=== PATIENT | female | born 1945 | race Two or more races ===

== ENCOUNTER 2020-01-14 09:21 | Inpatient (IN) | payer MEDICARE, MEDICAID ==
[~2020-01-14] VITALS: Ht 165.1 cm; Wt 64.1 kg
--- NOTE | 2020-01-14 09:25 | NUR ---
ED Nurse Note: Triage was done but no available room yet. Pt/EMS waiting outside ER waiting for room availability. ER MD and charge nurse aware.
[2020-01-14] MEDS ORDERED: ACETAMINOPHEN325 M1 ORAL (09:54)
[2020-01-14] MEDS ORDERED: MULTIVITAMINS1 EAC8 ORAL (09:54)
[2020-01-14] MEDS ORDERED: ASCORBIC ACID500 MG ORAL (09:54)
[2020-01-14] MEDS ORDERED: ELIQUIS5 MG PO (09:54)
[2020-01-14] MEDS ORDERED: CEFTRIAXONE1 G1 IV (09:54)
[2020-01-14] MEDS ORDERED: COMBIVENT RESPIM4 GM IH (09:54)
[2020-01-14] MEDS ORDERED: ZITHROMAX250 MG ORAL (09:54)
[2020-01-14] MEDS ORDERED: PROBIOTIC1 EAC2 PO (09:54)
[2020-01-14] MEDS ORDERED: PANTOPRAZOLE SO40 MG ORAL (09:55)
[2020-01-14] MEDS ORDERED: ZOFRAN4 M3 ORAL (09:55)
[2020-01-14] MEDS ORDERED: SYMBICORT 16010.2 G1 IH (09:55)
[2020-01-14] MEDS ORDERED: PRO-STAT LIQUID30 ML ORAL (09:55)
[2020-01-14] MEDS ORDERED: LACTULOSE20 GM/301 ORAL (09:55)
[2020-01-14 11:00] VITALS: BP 122/74
--- NOTE | 2020-01-14 11:00 | NUR ---
ED Nurse Note: Pt brought by ambualnce from [facility]. Pt brought for abnormal labs 721 BNP. Pt has no cough, fever, bodyaches, nausea. history of COPD. Pt 94% 5L NC. Pt HR 88. Pt set up on monitor and isolation room in [facility]. has seen patient.
--- NOTE | 2020-01-14 11:01 | NUR ---
ED Nurse Note: Pt arrived with f/c.
--- NOTE | 2020-01-14 11:36 | Diagnostic Imaging Report ---
EXAM: XR Chest, 1 View CLINICAL HISTORY: PREOP TECHNIQUE: Frontal view of the chest. COMPARISON: None FINDINGS: Hardware: None. Lungs/pleura: Bibasilar opacities may represent atelectasis versus pneumonia. Small bilateral pleural effusions and/or pleural thickening. Background of chronic interstitial lung changes and probable emphysema. Heart/mediastinum: Enlargement of the cardiac silhouette. Atherosclerotic calcifications of the aorta. Soft tissues: Unremarkable. Bones: No acute fracture. Generative changes of the acromioclavicular joints. Upper abdomen: Normal. IMPRESSION: 1. Bibasilar opacities may represent atelectasis versus pneumonia. Small bilateral pleural effusions and/or pleural thickening. 2. Background of chronic interstitial lung changes and probable emphysema.
[2020-01-14 11:37] LABS: BASOPHILS % (AUTO) 1.5 % (0.0-2.0); EOSINOPHILS % (AUTO) 7.1 % (0.0-3.0); HEMATOCRIT 29.2 % (37.0-47.0); HEMOGLOBIN 8.5 G/DL (12.0-16.0); LYMPHOCYTES % (AUTO) 12.8 % (20.0-45.0); MEAN CORPUSCULAR VOLUME 86 FL (80-99); MONOCYTES % (AUTO) 7.8 % (1.0-10.0); NEUTROPHILS % (AUTO) 70.7 % (45.0-75.0); PLATELET COUNT 479 K/UL (150-450); RED BLOOD COUNT 3.39 M/UL (4.20-5.40); RED CELL DISTRIBUTION WIDTH 20.1 % (11.6-14.8); WHITE BLOOD COUNT 7.6 K/UL (4.8-10.8)
--- NOTE | 2020-01-14 11:46 | NUR ---
ED Nurse Note: COVID sample sent.
[2020-01-14 11:57] LABS: ANION GAP 7 mmol/L (5-15); BLOOD UREA NITROGEN 8 mg/dL (7-18); CALCIUM 8.8 MG/DL (8.5-10.1); CARBON DIOXIDE 29 MMOL/L (21-32); CHLORIDE 110 MMOL/L (98-107); CREATININE 0.5 MG/DL (0.55-1.30); POTASSIUM 4.3 MMOL/L (3.5-5.1); SODIUM 146 MMOL/L (136-145)
[2020-01-14 12:10] LABS: ALANINE AMINOTRANSFERASE 19 U/L (12-78); ALBUMIN 2.5 G/DL (3.4-5.0); ALBUMIN/GLOBULIN RATIO 0.8 (1.0-2.7); ALKALINE PHOSPHATASE 136 U/L (46-116); ASPARTATE AMINO TRANSFERASE 22 U/L (15-37); BILIRUBIN,TOTAL 0.2 MG/DL (0.2-1.0)
[2020-01-14] MEDS ORDERED: Cefepime HCl 2 GM in NS 110 ML IV ONE (12:30)
[2020-01-14] MEDS ORDERED: Vancomycin 1 GM in NS 275 ML IV ONE (12:30)
--- NOTE | 2020-01-14 13:26 | Emergency Room Report ---
History of Present Illness General Chief Complaint: Abnormal Labs Source: Patient, Medical Record Present Illness HPI 74-year-old female history of hypertension, diabetes presents with generalized weakness times unknown start date, no known aggravating relieving factor severity is moderate, constant patient reports feeling very tired and weak patient presents from group home with known COVID Allergies: Coded Allergies: No Known Allergies (Unverified , 01/14/20) COVID-19 Screening Contact w/high risk pt: No Recent Travel to affected area: No Experienced COVID-19 symptoms?: No Patient History Past Medical History: see triage record Reviewed Nursing Documentation: PMH: Agreed; PSxH: Agreed Nursing Documentation-PMH Past Medical History: No History, Except For Hx Hypertension: Yes - hyperlipidemia Hx COPD: Yes - pneumonia Review of Systems All Other Systems: negative except mentioned in HPI Physical Exam Vital Signs Date Time Temp Pulse Resp B/P (MAP) Pulse Ox O2 Delivery O2 Flow Rate FiO2 01/14/20 09:22 98.6 89 18 124/60 (81) 99 Nasal Cannula 3.0 Sp02 EP Interpretation: reviewed, normal General Appearance: alert, Chronically Ill Head: normocephalic, atraumatic Eyes: bilateral eye PERRL, bilateral eye EOMI ENT: uvula midline, moist mucus membranes Neck: supple, thyroid normal, supple/symm/no masses Respiratory: no respiratory distress, no retraction, no accessory muscle use Cardiovascular #1: regular rate, rhythm, no edema, no gallop, no murmur Gastrointestinal: non tender, soft, no guarding, no rebound Musculoskeletal: normal inspection Neurologic: alert, oriented x3 Psychiatric: mood/affect normal Skin: no rash, warm/dry Medical Decision Making Diagnostic Impression: Primary Impression: Weakness Additional Impressions: Suspected COVID-19 virus infection Pneumonia Qualified Codes: J18.9 - Pneumonia, unspecified organism ER Course 74-year-old female from nursing facility presents with generalized weakness fatigue, differential diagnosis includes COVID, pneumonia, sepsis patient with bilateral opacities, patient started on Cefepime and vancomycin, Patient admitted to [facility] Laboratory Tests Test 01/14/20 11:07 White Blood Count 7.6 K/UL (4.8-10.8) Red Blood Count 3.39 M/UL (4.20-5.40) L Hemoglobin 8.5 G/DL (12.0-16.0) L Hematocrit 29.2 % (37.0-47.0) L Mean Corpuscular Volume 86 FL (80-99) Mean Corpuscular Hemoglobin 25.1 PG (27.0-31.0) L Mean Corpuscular Hemoglobin Concent 29.2 G/DL (32.0-36.0) L Red Cell Distribution Width 20.1 % (11.6-14.8) H Platelet Count 479 K/UL (150-450) H Mean Platelet Volume 5.1 FL (6.5-10.1) L Neutrophils (%) (Auto) 70.7 % (45.0-75.0) Lymphocytes (%) (Auto) 12.8 % (20.0-45.0) L Monocytes (%) (Auto) 7.8 % (1.0-10.0) Eosinophils (%) (Auto) 7.1 % (0.0-3.0) H Basophils (%) (Auto) 1.5 % (0.0-2.0) Prothrombin Time 10.8 SEC (9.30-11.50) Prothrombin Time INR 1.0 (0.9-1.1) Activated Partial Thromboplast Time 28 SEC (23-33) Sodium Level 146 MMOL/L (136-145) H Potassium Level 4.3 MMOL/L (3.5-5.1) Chloride Level 110 MMOL/L (98-107) H Carbon Dioxide Level 29 MMOL/L (21-32) Anion Gap 7 mmol/L (5-15) Blood Urea Nitrogen 8 mg/dL (7-18) Creatinine 0.5 MG/DL (0.55-1.30) L Estimated Glomerular Filtration Rate > 60 mL/min (>60) Glucose Level 118 MG/DL (74-106) H Calcium Level 8.8 MG/DL (8.5-10.1) Total Bilirubin 0.2 MG/DL (0.2-1.0) Aspartate Amino Transferase (AST) 22 U/L (15-37) Alanine Aminotransferase (ALT) 19 U/L (12-78) Alkaline Phosphatase 136 U/L (46-116) H Troponin I 0.002 ng/mL (0.000-0.056) Pro-B-Type Natriuretic Peptide 6343 pg/mL (0-125) H Total Protein 5.7 G/DL (6.4-8.2) L Albumin 2.5 G/DL (3.4-5.0) L Globulin 3.2 g/dL Albumin/Globulin Ratio 0.8 (1.0-2.7) L Lipase 123 U/L (73-393) EKG Diagnostic Results EKG Time: 11:03 EP Interpretation: NSR, rate 77, QTc 457, no acute ST elevations, normal axis Rhythm Strip Diag. Results Rhythm Strip Time: 11:05 EP Interpretation: yes Rate: 79 Rhythm: NSR, no PVC's, no ectopy Chest X-Ray Diagnostic Results Chest X-Ray Diagnostic Results : Chest X-Ray Ordered: Yes # of Views/Limited/Complete: 1 View Indication: Shortness of Breath Interpretation: other - Bilateral opacities Impression: Other - Bilateral infiltrates Last Vital Signs Date Time Temp Pulse Resp B/P (MAP) Pulse Ox O2 Delivery O2 Flow Rate FiO2 01/14/20 11:00 98.6 87 20 122/74 94 Nasal Cannula 4.0 Disposition: ADMITTED INPATIENT Condition: Stable Referrals: Oswald Fair MD (PCP) Georges Sánchez MD Jan 14, 2020 13:26
--- NOTE | 2020-01-14 13:30 | NUR ---
ED Nurse Note: ED wound care photos uploaded. Belongings list done.
[2020-01-14 13:55] VITALS: BP 120/71
[2020-01-14] MEDS ORDERED: Acetaminophen 650 MG SUPP RECTAL PRN ×2 (14:30)
[2020-01-14] MEDS ORDERED: DiphenhydrAMINE 25mg Tab ORAL PRN (14:30)
[2020-01-14] MEDS ORDERED: Miralax 17gm pkt ORAL PRN (14:30)
[2020-01-14] MEDS ORDERED: Nitroglycerin Subl 0.4mg tab SL PRN (14:30)
[2020-01-14] MEDS ORDERED: Morphine Sulfate 4mg/ml Inj (IV USE ONLY) IVP PRN (14:30)
--- NOTE | 2020-01-14 15:50 | NUR ---
ED Nurse Note: Pt in stable condition, VSS. Pt voiding. Output recorded.
--- NOTE | 2020-01-14 16:15 | Cardiac Electrophysiology PN ---
Subjective Subjective [id number] Objective Last 24 Hour Vital Signs Date Time Temp Pulse Resp B/P (MAP) Pulse Ox O2 Delivery O2 Flow Rate FiO2 01/14/20 11:00 98.6 87 20 122/74 94 Nasal Cannula 4.0 01/14/20 09:22 98.6 89 18 124/60 (81) 99 Nasal Cannula 3.0 Laboratory Tests Test 01/14/20 11:07 White Blood Count 7.6 K/UL (4.8-10.8) Red Blood Count 3.39 M/UL (4.20-5.40) L Hemoglobin 8.5 G/DL (12.0-16.0) L Hematocrit 29.2 % (37.0-47.0) L Mean Corpuscular Volume 86 FL (80-99) Mean Corpuscular Hemoglobin 25.1 PG (27.0-31.0) L Mean Corpuscular Hemoglobin Concent 29.2 G/DL (32.0-36.0) L Red Cell Distribution Width 20.1 % (11.6-14.8) H Platelet Count 479 K/UL (150-450) H Mean Platelet Volume 5.1 FL (6.5-10.1) L Neutrophils (%) (Auto) 70.7 % (45.0-75.0) Lymphocytes (%) (Auto) 12.8 % (20.0-45.0) L Monocytes (%) (Auto) 7.8 % (1.0-10.0) Eosinophils (%) (Auto) 7.1 % (0.0-3.0) H Basophils (%) (Auto) 1.5 % (0.0-2.0) Prothrombin Time 10.8 SEC (9.30-11.50) Prothromb Time International Ratio 1.0 (0.9-1.1) Activated Partial Thromboplast Time 28 SEC (23-33) Sodium Level 146 MMOL/L (136-145) H Potassium Level 4.3 MMOL/L (3.5-5.1) Chloride Level 110 MMOL/L (98-107) H Carbon Dioxide Level 29 MMOL/L (21-32) Anion Gap 7 mmol/L (5-15) Blood Urea Nitrogen 8 mg/dL (7-18) Creatinine 0.5 MG/DL (0.55-1.30) L Estimat Glomerular Filtration Rate > 60 mL/min (>60) Glucose Level 118 MG/DL (74-106) H Calcium Level 8.8 MG/DL (8.5-10.1) Total Bilirubin 0.2 MG/DL (0.2-1.0) Aspartate Amino Transf (AST/SGOT) 22 U/L (15-37) Alanine Aminotransferase (ALT/SGPT) 19 U/L (12-78) Alkaline Phosphatase 136 U/L (46-116) H Troponin I 0.002 ng/mL (0.000-0.056) Pro-B-Type Natriuretic Peptide 6343 pg/mL (0-125) H Total Protein 5.7 G/DL (6.4-8.2) L Albumin 2.5 G/DL (3.4-5.0) L Globulin 3.2 g/dL Albumin/Globulin Ratio 0.8 (1.0-2.7) L Lipase 123 U/L (73-393) Microbiology Date/Time Source Procedure Growth Status 01/14/20 11:25 Rectum Received Diony Reeves MD Jan 14, 2020 16:15
[2020-01-14 16:20] VITALS: BP 125/73
[2020-01-14 17:29] LABS: APPEARANCE,URINE CLEAR; BILIRUBIN, URINE NEGATIVE (NEGATIVE); COLOR,URINE PALE YELLOW; GLUCOSE, URINE (UA) NEGATIVE (NEGATIVE); KETONES,URINE NEGATIVE (NEGATIVE); LEUKOCYTE ESTERASE ,URINE 2+ (NEGATIVE); NITRITE,URINE NEGATIVE (NEGATIVE); PH,URINE 8 (4.5-8.0); PROTEIN,URINE NEGATIVE (NEGATIVE); UROBILINOGEN,URINE NORMAL MG/DL (0.0-1.0)
--- NOTE | 2020-01-14 17:30 | NUR ---
ED Nurse Note: Pt is lying in bed. from inpatient has seen patient.
[2020-01-14 19:18] VITALS: BP 126/72
[2020-01-14] MEDS ORDERED: Morphine Sulfate 4mg/ml Inj (IV USE ONLY) IVP ONE (20:15)
--- NOTE | 2020-01-14 20:45 | NUR ---
ED Nurse Note: Report received from CHRISTINA Zafar. Pt in stable condition, VSS no ss of distress noted. PT placed on monitor in RM 07. Pt is argentine speaking only, aao x 2. Will continue to monitor
[2020-01-14 21:30] VITALS: BP 131/49
--- NOTE | 2020-01-14 22:10 | NUR ---
ED Nurse Note: Pt sleeping in bed, vss no ss of distress noted. will continue to monitor.
[2020-01-14] MEDS: Docusate 100mg cap ORAL SCH (22:41)
[2020-01-14 23:41] VITALS: BP 130/48
[2020-01-15] VITALS (9 sets, daily range): BP systolic 111–125; BP diastolic 40–59
--- NOTE | 2020-01-15 00:15 | NUR ---
ED Nurse Note: Pt sleeping in bed, vss no ss of distress noted. will continue to monitor.
--- NOTE | 2020-01-15 02:35 | NUR ---
ED Nurse Note: Pt sleeping in bed, vss no ss of distress noted. will continue to monitor.
--- NOTE | 2020-01-15 03:00 | Consultation ---
DATE OF CONSULTATION: 01/14/2020 CARDIOLOGY CONSULTATION CONSULTING PHYSICIAN: Diony Reeves MD. REFERRING PHYSICIAN: Oswald Fair MD. REASON FOR CONSULTATION: Congestive heart failure and hypertension. HISTORY OF PRESENT ILLNESS: The patient is a 74-year-old lady with history of hypertension, diabetes, congestive heart failure, presented to emergency room with generalized weakness. The patient is coming from [facility] with known COVID disease patients. In the ER, the patient's blood pressure was 124/68, pulse of 89. The patient is being admitted to rule out COVID. It is of note that the patient's BNP was more than 6000. The first troponin was negative. REVIEW OF SYSTEMS: Negative. PAST MEDICAL HISTORY: As mentioned above. FAMILY HISTORY: Noncontributory. SOCIAL HISTORY: She is a halfway resident. Does not smoke or drink alcohol. PHYSICAL EXAMINATION: VITAL SIGNS: Blood pressure is 122/74, pulse is 87, respirations 18, and temperature 98.6. HEAD AND NECK: Showed no JVD. LUNGS: Clear. CARDIOVASCULAR: Shows regular S1 and S2 with no gallop. ABDOMEN: Soft. EXTREMITIES: No pitting edema. LABORATORY DATA: Her labs show a sodium 142, potassium 4.3, BUN of 18, creatinine 0.5, glucose of 118. Troponin is negative. BNP 6343. White count is 7.2, hemoglobin 8.5, hematocrit 29.2. ASSESSMENT AND PLAN: 1. Shortness of breath and elevated BNP of more than 6000. Could be due to congestive heart failure. We will start the patient on Lasix 40 mg IV b.i.d. We will get an echocardiogram for further evaluation. 2. Hypertension. Continue Lasix at this time. 3. Possible pneumonia. The patient has ceftriaxone, azithromycin and the COVID-19 test result is pending. 4. Anemia, hemoglobin 8.5. 5. Diabetes. Thank you very much for allowing me to participate in the care of this patient. Please do not hesitate to contact me for any questions regarding my evaluation. Diony Reeves M.D. DR: JODIE JOB#: [id number] CC:
--- NOTE | 2020-01-15 04:00 | NUR ---
ED Nurse Note: Pt moved to hospital bed in stable condition, vss no ss of distress noted. Blood drawn for routine 0400 labs, sent to lab. EKG scheduled for 0400 taken and given to ERMGin. Will continue to monitor
[2020-01-15 04:45] LABS: BASOPHILS % (AUTO) 1.3 % (0.0-2.0); EOSINOPHILS % (AUTO) 3.9 % (0.0-3.0); HEMATOCRIT 30.4 % (37.0-47.0); HEMOGLOBIN 9.2 G/DL (12.0-16.0); LYMPHOCYTES % (AUTO) 14.6 % (20.0-45.0); MEAN CORPUSCULAR VOLUME 85 FL (80-99); MONOCYTES % (AUTO) 6.4 % (1.0-10.0); NEUTROPHILS % (AUTO) 73.9 % (45.0-75.0); PLATELET COUNT 483 K/UL (150-450); RED BLOOD COUNT 3.58 M/UL (4.20-5.40); WHITE BLOOD COUNT 9.6 K/UL (4.8-10.8)
[2020-01-15 04:48] LABS: ANION GAP 5 mmol/L (5-15); BLOOD UREA NITROGEN 8 mg/dL (7-18); CALCIUM 8.8 MG/DL (8.5-10.1); CARBON DIOXIDE 36 MMOL/L (21-32); CHLORIDE 104 MMOL/L (98-107); CREATININE 0.7 MG/DL (0.55-1.30); POTASSIUM 3.5 MMOL/L (3.5-5.1); SODIUM 145 MMOL/L (136-145)
--- NOTE | 2020-01-15 07:05 | NUR ---
HAND-OFF: Report given to .CHRISTINA Merchant
--- NOTE | 2020-01-15 07:50 | NUR ---
ED Nurse Note: EKG taken.
[2020-01-15] MEDS: Azithromycin 500 MG in NS 275 ML IV SCH (09:03)
[2020-01-15] MEDS: Docusate 100mg cap ORAL SCH ×2 (09:04→21:07)
[2020-01-15] MEDS: Aspirin Baby 81mg ORAL SCH (09:04)
[2020-01-15] MEDS: cefTRIAXone 1 GM in NS 55 ML IVPB SCH (09:04)
[2020-01-15] MEDS: Enoxaparin 40mg Inj SUBQ SCH (09:06)
--- NOTE | 2020-01-15 10:00 | NUR ---
ED Nurse Note: Pt is lying in bed. Pt is eating. F/C drained. VSS.
--- NOTE | 2020-01-15 13:59 | NUR ---
ED Nurse Note: Pt has pain in ab 01/28. ERMD aware.
--- NOTE | 2020-01-15 14:51 | History and Physical ---
History of Present Illness General Date patient seen: Jan 15, 2020 Reason for Hospitalization: Abnormal Labs Present Illness HPI 74 yr F w/ Hx HTN, CHF, DM2 admitted via ED with SOB c/w CHF exacerbation w/ suspected underlying PNA undergoing COVID 19 rule out. Pt was sent to the ED from SNF with known COVID positive patients. Pt reports general fatigue and malaise prior to presentation w/ associated SOB. In the ED pt was found to be afebrile and HDS. Has been sating well on NC. Labs sig for BNP 7000. CXR showed some bilat lower lobe infiltrates vs compressive changes and hyperinflation c/w emphysema. Pt was started on vanco/cefepime in ED and received a dose of IV lasix. COVID 19 PCR sent and isolation precautions initiated. CAP coverage w/ azithro/ceftriaxone started. Pt evaluated by cards and continued on IV lasix, good response. Serial Tn have been neg x 3. Symptoms improved. Allergies: Coded Allergies: No Known Allergies (Unverified , 01/14/20) COVID-19 Screening Contact w/high risk pt: No Recent Travel to affected area: No Experienced COVID-19 symptoms?: Yes COVID-19 symptoms experienced: Shortness of Breath, Cough Medication History Scheduled Amino Acids/Protein Hydrolys (Pro-Stat Liquid), 30 ML ORAL THREE TIMES A DAY, ( Reported) Apixaban (Eliquis), 5 MG PO TWICE A DAY, (Reported) Ascorbic Acid* (Ascorbic Acid*), 500 MG ORAL DAILY, (Reported) Azithromycin* (Zithromax*), 500 MG ORAL DAILY, (Reported) Budesonide/Formoterol Fumarate (Symbicort 160-4.5 Mcg Inhaler), 2 PUFF IH TWICE A DAY, (Reported) Ceftriaxone Sodium (Ceftriaxone), 1 GM IV DAILY, (Reported) Ipratropium/Albuterol Sulfate (Combivent Respimat Inhal [place]), 4 GM IH Q6HR, ( Reported) Lactobacillus Acidophilus (Probiotic), 1 EACH PO TWICE A DAY, (Reported) Lactulose (Lactulose*), 30 ML ORAL DAILY, (Reported) Multivitamin With Minerals (Multivitamins With Minerals*), 1 TAB ORAL DAILY, ( Reported) Pantoprazole* (Pantoprazole*), 40 MG ORAL DAILY, (Reported) Scheduled PRN Acetaminophen* (Acetaminophen 325MG Tablet*), 650 MG ORAL Q4H PRN for For Pain, (Reported) Ondansetron* (Zofran*), 4 MG ORAL Q6H PRN for Nausea & Vomiting, (Reported) Patient History Healthcare decision maker Resuscitation status Advanced Directive on File Review of Systems Constitutional: Reports: malaise, weakness Eye: Denies: no symptoms, see HPI, eye pain, blurred vision, tearing, double vision, nose pain, nose congestion, acuity changes, discharge, other Respiratory: Reports: shortness of breath, SMITH Cardiovascular: Denies: no symptoms, see HPI, chest pain, edema, palpitations, syncope, PND, other Gastrointestinal: Denies: no symptoms, see HPI, abdominal pain, constipation, diarrhea, nausea, vomiting, melena, hematemesis, other Musculoskeletal: Denies: no symptoms, see HPI, back pain, gout, joint pain, joint swelling, muscle pain, muscle stiffness, other Skin: Denies: no symptoms, see HPI, rash, change in color, change in hair/nails , dryness, lesions, other Psychiatric: Denies: no symptoms, see HPI, prior hx, anxiety, depressed feelings, emotional problems, SI, HI, hallucinations, other Physical Exam General Appearance: WD/WN, no apparent distress HEENT: normocephalic, atraumatic, PERRL, EOMI Neck: supple Respiratory/Chest: lungs clear, normal breath sounds, no respiratory distress, no accessory muscle use Cardiovascular/Chest: normal peripheral pulses, normal rate, regular rhythm, no gallop/murmur, JVD Abdomen: normal bowel sounds, non tender, soft Extremities: normal inspection Last 24 Hour Vital Signs Date Time Temp Pulse Resp B/P (MAP) Pulse Ox O2 Delivery O2 Flow Rate FiO2 01/15/20 11:30 Nasal Cannula 1.0 01/15/20 11:12 98.6 62 17 117/53 95 Nasal Cannula 1.0 01/15/20 09:12 98.6 68 20 124/47 96 Nasal Cannula 1.0 01/15/20 05:45 98.6 60 21 123/42 94 Nasal Cannula 1.0 01/15/20 03:00 98.6 67 15 124/43 94 Nasal Cannula 2.0 01/15/20 01:22 98.6 64 16 118/43 94 Nasal Cannula 1.0 01/14/20 23:41 98.6 65 16 130/48 94 Nasal Cannula 1.0 01/14/20 21:30 98.6 68 16 131/49 94 Nasal Cannula 1.0 01/14/20 20:46 98.6 01/14/20 19:18 98.6 82 16 126/72 94 Nasal Cannula 1.0 01/14/20 16:20 98.6 86 18 125/73 94 Nasal Cannula 1.0 Intake and Output 01/14/20 01/15/20 19:00 07:00 Intake Total 0 ml Output Total 330 ml 4000 ml Balance -330 ml -4000 ml Intake Oral 0 ml Output Urine Total 330 ml 4000 ml Laboratory Tests Test 01/14/20 16:20 01/14/20 16:36 01/15/20 04:00 Urine Color Pale yellow Urine Appearance Clear Urine pH 8 (4.5-8.0) Urine Specific Hext 1.010 (1.005-1.035) Urine Protein Negative (NEGATIVE) Urine Glucose (UA) Negative (NEGATIVE) Urine Ketones Negative (NEGATIVE) Urine Blood Negative (NEGATIVE) Urine Nitrite Negative (NEGATIVE) Urine Bilirubin Negative (NEGATIVE) Urine Urobilinogen Normal MG/DL (0.0-1.0) Urine Leukocyte Esterase 2+ (NEGATIVE) H Urine RBC 0 /HPF (0 - 2) Urine WBC 2-4 /HPF (0 - 2) Urine Squamous Epithelial Cells None /LPF (NONE/OCC) Urine Bacteria Occasional /HPF (NONE) Activated Partial Thromboplast Time 27 SEC (23-33) Troponin I 0.001 ng/mL (0.000-0.056) 0.005 ng/mL (0.000-0.056) White Blood Count 9.6 K/UL (4.8-10.8) Red Blood Count 3.58 M/UL (4.20-5.40) L Hemoglobin 9.2 G/DL (12.0-16.0) L Hematocrit 30.4 % (37.0-47.0) L Mean Corpuscular Volume 85 FL (80-99) Mean Corpuscular Hemoglobin 25.7 PG (27.0-31.0) L Mean Corpuscular Hemoglobin Concent 30.3 G/DL (32.0-36.0) L Red Cell Distribution Width 20.0 % (11.6-14.8) H Platelet Count 483 K/UL (150-450) H Mean Platelet Volume 4.9 FL (6.5-10.1) L Neutrophils (%) (Auto) 73.9 % (45.0-75.0) Lymphocytes (%) (Auto) 14.6 % (20.0-45.0) L Monocytes (%) (Auto) 6.4 % (1.0-10.0) Eosinophils (%) (Auto) 3.9 % (0.0-3.0) H Basophils (%) (Auto) 1.3 % (0.0-2.0) Sodium Level 145 MMOL/L (136-145) Potassium Level 3.5 MMOL/L (3.5-5.1) Chloride Level 104 MMOL/L (98-107) Carbon Dioxide Level 36 MMOL/L (21-32) H Anion Gap 5 mmol/L (5-15) Blood Urea Nitrogen 8 mg/dL (7-18) Creatinine 0.7 MG/DL (0.55-1.30) Estimat Glomerular Filtration Rate > 60 mL/min (>60) Glucose Level 97 MG/DL (74-106) Calcium Level 8.8 MG/DL (8.5-10.1) Pro-B-Type Natriuretic Peptide 7238 pg/mL (0-125) H Height (Feet): 5 Height (Inches): 5.00 Weight (Pounds): 150 Medications Current Medications Medications (Trade) Dose Ordered Sig/Yolanda Route PRN Reason Start Time Stop Time Status Last Admin Dose Admin Acetaminophen (Tylenol) 650 mg ONCE ORAL 01/15/20 14:15 01/15/20 16:00 Acetaminophen (Tylenol) 650 mg Q4H PRN ORAL FEVER 01/14/20 14:30 02/13/20 14:29 Acetaminophen (Tylenol) 650 mg Q4H PRN ORAL Mild Pain (Pain Scale 1-3) 01/14/20 14:30 02/13/20 14:29 Acetaminophen (Tylenol) 650 mg Q4H PRN RECTAL FEVER 01/14/20 14:30 02/13/20 14:29 Acetaminophen (Tylenol) 650 mg Q4H PRN RECTAL Mild Pain (Pain Scale 1-3) 01/14/20 14:30 02/13/20 14:29 Aspirin (ASA) 162 mg DAILY ORAL 01/15/20 09:00 02/29/20 08:59 01/15/20 09:04 Azithromycin 500 mg/Sodium Chloride 275 ml @ 275 mls/hr DAILY IV 01/15/20 10:00 01/20/20 09:59 01/15/20 09:03 Ceftriaxone Sodium 1 gm/ Sodium Chloride 55 ml @ 110 mls/hr DAILY IVPB 01/15/20 09:00 01/22/20 08:59 01/15/20 09:04 Diphenhydramine HCl (Benadryl) 25 mg Q6H PRN ORAL Itching/Pruritis/insomnia 01/14/20 14:30 02/13/20 14:29 Docusate Sodium (Colace) 100 mg EVERY 12 HOURS ORAL 01/14/20 21:00 02/13/20 20:59 01/15/20 09:04 Enoxaparin Sodium (Lovenox) 40 mg DAILY SUBQ 01/15/20 09:00 04/14/20 08:59 01/15/20 09:06 Famotidine (Pepcid) 20 mg Q12H PRN ORAL gerd 01/14/20 14:30 04/13/20 14:29 Furosemide (Lasix) 40 mg BID IV 01/14/20 18:00 02/13/20 17:59 01/15/20 09:03 Morphine Sulfate (Morphine Sulfate) 2 mg Q4H PRN IVP Moderate Pain (Pain Scale 4-6) 01/14/20 14:30 01/21/20 14:29 Morphine Sulfate (Morphine Sulfate) 4 mg Q4H PRN IVP Severe Pain (Pain Scale 7-10) 01/14/20 14:30 01/21/20 14:29 Nitroglycerin (Ntg) 0.4 mg Q5M PRN SL Prn Chest Pain 01/14/20 14:30 02/13/20 14:29 Ondansetron HCl (Zofran) 4 mg Q6H PRN IVP Nausea & Vomiting 01/14/20 14:30 02/13/20 14:29 Polyethylene Glycol (Miralax) 17 gm DAILYPRN PRN ORAL Constipation 01/14/20 14:30 02/13/20 14:29 Assessment/Plan Assessment/Plan: 74 yr F w/ Hx HTN, CHF, DM2 admitted via ED with SOB c/w CHF exacerbation w/ suspected underlying PNA undergoing COVID 19 rule out. #Rule out COVID 19 #Suspected PNA #COPD/Emphysema #Acute hypoxic respiratory failure (suspect pts sats < 88% on RA should be taken off O2 w/ pulm infiltrates and CHF) - admit to in pt - Pulm consult - COVID 19 PCR -> Pending - COVID 19 isolation precautions per protocol - c/w Azithromycin & Ceftriaxone (01/13 - ) - follow Blood, sputum cx's - ID consult - Trend CHEM, CBC - Supplemental O2 as needed - Nebs prn for SOB/Wheeze #Acute decompensated CHF - cardiology consult - property clerk - serial tn/ekg -> neg x 3 - UA not c/w infection - TTE - Lasix 40 IV BID, goal neg 1L per day - 1.5 L fluid restriction, cardiac diet - strict i/o's and daily weights - Trend chem, goal K>4, Mag>2 - workup and abx as above I spent 67 min on this case and 35 min was dedicated to counseling and care coordination including discussion including communication w/ overnight coverage , consultants, RN at bedside and ER MD. Time of this note may not reflect the time of the clinical encounter. Herb Lyman MD Jan 15, 2020 14:51
[2020-01-15] MEDS ORDERED: Albuterol/Ipratropium 3ml neb HHN PRN (15:00)
--- NOTE | 2020-01-15 16:12 | NUR ---
ED Nurse Note: f/c emptied. Pt had small bowel movement.
--- NOTE | 2020-01-15 17:16 | NUR ---
ED Nurse Note: Report given to Jason VASQUEZ.
--- NOTE | 2020-01-15 17:30 | Consultation ---
DATE OF CONSULTATION: 01/15/2020 PULMONARY CONSULTATION HISTORY OF PRESENT ILLNESS: This is a 74-year-old female with a history of CHF. She came to the hospital with weakness. She reported that she is also having cough and congestion. She was seen and worked up in the ER, admitted to the hospital. The patient has a history of hypertension and diabetes mellitus. [facility] and at the facility they have been patients with positive COVID-19. PAST MEDICAL HISTORY: Discussed above notable for hypertension, diabetes mellitus, CHF. MEDICATIONS: Reviewed and reconciled in chart. Currently, the patient is also getting Tylenol, aspirin, azithromycin, Rocephin, diphenhydramine, Colace, Lovenox, Pepcid, Lasix, and p.r.n. morphine. REVIEW OF SYSTEMS: Denies any headaches, hematemesis, melena, hematochezia, night sweats, or weight loss. PHYSICAL EXAMINATION: GENERAL: Reveals elderly female. VITAL SIGNS: Blood pressure is 117/50, heart rate 64, respiratory rate 18, O2 saturation 95% with 1 liters of oxygen. HEENT: Unremarkable. CHEST: Few crackles. HEART: Normal heart sounds. ABDOMEN: Soft. EXTREMITIES: There is 1+ edema. LABORATORY DATA: Lab testing shows hemoglobin 9.2, otherwise normal CBC and BMP. Troponin negative x3. Coags are negative. Urinalysis is negative. IMAGING STUDIES: X-ray chest was obtained yesterday, which shows bibasilar opacities consistent with atelectasis versus pneumonia. IMPRESSION: 1. Decompensated congestive heart failure. 2. Hypertension. 3. Diabetes mellitus. 4. Rule out COVID-19. DISCUSSION: Admitted to the hospital. Await COVID-19 testing. We will follow as forest resources professor. Currently, the patient is saturating well on low-flow oxygen. Continue home medications. We will increase Lasix. Pawan Holland M.D. DR: James JOB#: [id number] CC:
--- NOTE | 2020-01-15 18:00 | NUR ---
ED Nurse Note: Pt transferred to tele floor with all belongings. Received by RN Min. Pt on monitor.
--- NOTE | 2020-01-15 18:20 | NUR ---
NURSE NOTES: Pt transferred from ED via gurney with ED RN and tech. Pt in bed awake and orientedx2 or 3 and solomon islander speaking. Bed in lowest position and locked. Side railsx3 up for safety. On O2 1LPM via N/C. Multiple pressure wound noted. All pictures taken. IV site in RAC 20G SL, RFA 22G SL patent and asymptomatic. Will continue to plan of care.
--- NOTE | 2020-01-15 19:25 | NUR ---
HAND-OFF: Report given to Kdaie VASQUEZ. Pt remains stable.
--- NOTE | 2020-01-15 19:36 | NUR ---
NURSE NOTES: Spoke to Dr. Stearns, patient will be changed from observation to admition, added Dr. Geiger to the case for wound consult, and asked to put patient on sliding scale because patient is diabetic, but doctor said that her blood glucose had been good so no sliding scale was ordered.
--- NOTE | 2020-01-15 20:11 | NUR ---
NURSE NOTES: Received patient report from CHRISTINA Knight. Patient is AOx 3. Shows no signs of distress or pain at the time. IV checked, patent and flushed. There are no signs of erythema, infiltration, or bleeding from both. Bed in the lowest position, call light within reach, side rails up x 2, and bed alarm on. Will continue plan of care.
--- NOTE | 2020-01-15 21:45 | Consultation ---
History of Present Illness General Date patient seen: Jan 15, 2020 Chief Complaint: Abnormal Labs Present Illness HPI 74 year old female with multiple medical comorbidities presented to [facility] for evaluation of SOB and CHF. Admitted for care and management. Suspect COVID 19 pending testing. on admission abnormal labs, nutrition, and venous stasis ulcers requiring care. surgery called to evaluate and assist with care. Allergies: Coded Allergies: No Known Allergies (Unverified , 01/14/20) Medication History Scheduled Amino Acids/Protein Hydrolys (Pro-Stat Liquid), 30 ML ORAL THREE TIMES A DAY, ( Reported) Apixaban (Eliquis), 5 MG PO TWICE A DAY, (Reported) Ascorbic Acid* (Ascorbic Acid*), 500 MG ORAL DAILY, (Reported) Azithromycin* (Zithromax*), 500 MG ORAL DAILY, (Reported) Budesonide/Formoterol Fumarate (Symbicort 160-4.5 Mcg Inhaler), 2 PUFF IH TWICE A DAY, (Reported) Ceftriaxone Sodium (Ceftriaxone), 1 GM IV DAILY, (Reported) Ipratropium/Albuterol Sulfate (Combivent Respimat Inhal [place]), 4 GM IH Q6HR, ( Reported) Lactobacillus Acidophilus (Probiotic), 1 EACH PO TWICE A DAY, (Reported) Lactulose (Lactulose*), 30 ML ORAL DAILY, (Reported) Multivitamin With Minerals (Multivitamins With Minerals*), 1 TAB ORAL DAILY, ( Reported) Pantoprazole* (Pantoprazole*), 40 MG ORAL DAILY, (Reported) Scheduled PRN Acetaminophen* (Acetaminophen 325MG Tablet*), 650 MG ORAL Q4H PRN for For Pain, (Reported) Ondansetron* (Zofran*), 4 MG ORAL Q6H PRN for Nausea & Vomiting, (Reported) Patient History Limited by: medical condition History Provided By: Medical Record, PMD Healthcare decision maker Resuscitation status Advanced Directive on File Past Medical/Surgical History Past Medical/Surgical History: (1) Weakness (2) Pneumonia (3) CHF (congestive heart failure) (4) Abdominal pain (5) Suspected COVID-19 virus infection Review of Systems Constitutional: Denies: no symptoms, see HPI, chills, sweats, fever, malaise, weakness, other Eye: Denies: no symptoms, see HPI, eye pain, blurred vision, tearing, double vision, nose pain, nose congestion, acuity changes, discharge, other ENT: Denies: no symptoms, see HPI, ear pain, ear discharge, nose pain, nose congestion, throat pain, throat swelling, mouth pain, hearing loss, nasal discharge, other Respiratory: Reports: cough, shortness of breath; Denies: no symptoms, see HPI , stridor, wheezing, SMITH, sputum, other Cardiovascular: Denies: no symptoms, see HPI, chest pain, edema, palpitations, syncope, PND, other Gastrointestinal: Reports: abdominal pain; Denies: no symptoms, see HPI, constipation, diarrhea, nausea, vomiting, melena, hematemesis, other Genitourinary: Denies: no symptoms, see HPI, discharge, dysuria, frequency, hematuria, pain, retention, incontinence, urgency, vag bleed/dc, other Musculoskeletal: Denies: no symptoms, see HPI, back pain, gout, joint pain, joint swelling, muscle pain, muscle stiffness, other Skin: Denies: no symptoms, see HPI, rash, change in color, change in hair/nails , dryness, lesions, other Psychiatric: Denies: no symptoms, see HPI, prior hx, anxiety, depressed feelings, emotional problems, SI, HI, hallucinations, other Neurological: Denies: no symptoms, see HPI, headache, numbness, paresthesia, seizure, tingling, tremors, focal weakness, syncope, dizziness, other Endocrine: Denies: no symptoms, see HPI, excessive sweating, flushing, intolerance to temperature, increased thirst, increased urine, unexplained weight loss, other ROS Narrative difficult to obtain given patients overall condition Physical Exam General Appearance: no apparent distress, alert Lines, tubes and drains: peripheral HEENT: mucous membranes moist, PERRL Neck: supple, normal inspection Respiratory/Chest: chest wall non-tender, no accessory muscle use, decreased breath sounds Cardiovascular/Chest: other Abdomen: soft, no organomegaly, no mass Extremities: inflammation, slow capillary refill Skin Exam: warm/dry Neurologic: alert Last 24 Hour Vital Signs Date Time Temp Pulse Resp B/P (MAP) Pulse Ox O2 Delivery O2 Flow Rate FiO2 01/15/20 18:30 97.7 71 18 111/40 (63) 95 01/15/20 18:00 98.6 78 18 117/59 99 Nasal Cannula 1.0 01/15/20 16:07 98.6 71 16 125/59 97 Nasal Cannula 1.0 01/15/20 15:13 98.6 01/15/20 13:20 98.6 70 15 121/57 97 Nasal Cannula 1.0 01/15/20 11:30 Nasal Cannula 1.0 01/15/20 11:12 98.6 62 17 117/53 95 Nasal Cannula 1.0 01/15/20 09:12 98.6 68 20 124/47 96 Nasal Cannula 1.0 01/15/20 05:45 98.6 60 21 123/42 94 Nasal Cannula 1.0 01/15/20 03:00 98.6 67 15 124/43 94 Nasal Cannula 2.0 01/15/20 01:22 98.6 64 16 118/43 94 Nasal Cannula 1.0 01/14/20 23:41 98.6 65 16 130/48 94 Nasal Cannula 1.0 Intake and Output 01/14/20 01/15/20 19:00 07:00 Intake Total 0 ml Output Total 330 ml 4000 ml Balance -330 ml -4000 ml Intake Oral 0 ml Output Urine Total 330 ml 4000 ml Laboratory Tests Test 01/15/20 04:00 01/15/20 14:00 White Blood Count 9.6 K/UL (4.8-10.8) Red Blood Count 3.58 M/UL (4.20-5.40) L Hemoglobin 9.2 G/DL (12.0-16.0) L Hematocrit 30.4 % (37.0-47.0) L Mean Corpuscular Volume 85 FL (80-99) Mean Corpuscular Hemoglobin 25.7 PG (27.0-31.0) L Mean Corpuscular Hemoglobin Concent 30.3 G/DL (32.0-36.0) L Red Cell Distribution Width 20.0 % (11.6-14.8) H Platelet Count 483 K/UL (150-450) H Mean Platelet Volume 4.9 FL (6.5-10.1) L Neutrophils (%) (Auto) 73.9 % (45.0-75.0) Lymphocytes (%) (Auto) 14.6 % (20.0-45.0) L Monocytes (%) (Auto) 6.4 % (1.0-10.0) Eosinophils (%) (Auto) 3.9 % (0.0-3.0) H Basophils (%) (Auto) 1.3 % (0.0-2.0) Sodium Level 145 MMOL/L (136-145) Potassium Level 3.5 MMOL/L (3.5-5.1) Chloride Level 104 MMOL/L (98-107) Carbon Dioxide Level 36 MMOL/L (21-32) H Anion Gap 5 mmol/L (5-15) Blood Urea Nitrogen 8 mg/dL (7-18) Creatinine 0.7 MG/DL (0.55-1.30) Estimat Glomerular Filtration Rate > 60 mL/min (>60) Glucose Level 97 MG/DL (74-106) Calcium Level 8.8 MG/DL (8.5-10.1) Troponin I 0.005 ng/mL (0.000-0.056) 0.002 ng/mL (0.000-0.056) Pro-B-Type Natriuretic Peptide 7238 pg/mL (0-125) H Height (Feet): 5 Height (Inches): 5.00 Weight (Pounds): 150 Medications Current Medications Medications (Trade) Dose Ordered Sig/Yolanda Route PRN Reason Start Time Stop Time Status Last Admin Dose Admin Acetaminophen (Tylenol) 650 mg Q4H PRN ORAL Mild Pain (Pain Scale 1-3) 01/14/20 14:30 02/13/20 14:29 01/15/20 21:10 Acetaminophen (Tylenol) 650 mg Q4H PRN ORAL FEVER 01/14/20 14:30 02/13/20 14:29 Acetaminophen (Tylenol) 650 mg Q4H PRN RECTAL FEVER 01/14/20 14:30 02/13/20 14:29 Acetaminophen (Tylenol) 650 mg Q4H PRN RECTAL Mild Pain (Pain Scale 1-3) 01/14/20 14:30 02/13/20 14:29 Albuterol/ Ipratropium (Albuterol/ Ipratropium) 3 ml Q6HRT PRN HHN SOB/Wheeze 01/15/20 15:00 01/20/20 14:59 Aspirin (ASA) 162 mg DAILY ORAL 01/15/20 09:00 02/29/20 08:59 01/15/20 09:04 Azithromycin 500 mg/Sodium Chloride 275 ml @ 275 mls/hr DAILY IV 01/15/20 10:00 01/20/20 09:59 01/15/20 09:03 Ceftriaxone Sodium 1 gm/ Sodium Chloride 55 ml @ 110 mls/hr DAILY IVPB 01/15/20 09:00 01/22/20 08:59 01/15/20 09:04 Diphenhydramine HCl (Benadryl) 25 mg Q6H PRN ORAL Itching/Pruritis/insomnia 01/14/20 14:30 02/13/20 14:29 Docusate Sodium (Colace) 100 mg EVERY 12 HOURS ORAL 01/14/20 21:00 02/13/20 20:59 01/15/20 21:07 Enoxaparin Sodium (Lovenox) 40 mg DAILY SUBQ 01/15/20 09:00 04/14/20 08:59 01/15/20 09:06 Famotidine (Pepcid) 20 mg Q12H PRN ORAL gerd 01/14/20 14:30 04/13/20 14:29 Furosemide (Lasix) 40 mg BID IV 01/14/20 18:00 02/13/20 17:59 01/15/20 18:36 Morphine Sulfate (Morphine Sulfate) 2 mg Q4H PRN IVP Moderate Pain (Pain Scale 4-6) 01/14/20 14:30 01/21/20 14:29 Morphine Sulfate (Morphine Sulfate) 4 mg Q4H PRN IVP Severe Pain (Pain Scale 7-10) 01/14/20 14:30 01/21/20 14:29 Nitroglycerin (Ntg) 0.4 mg Q5M PRN SL Prn Chest Pain 01/14/20 14:30 02/13/20 14:29 Ondansetron HCl (Zofran) 4 mg Q6H PRN IVP Nausea & Vomiting 01/14/20 14:30 02/13/20 14:29 Polyethylene Glycol (Miralax) 17 gm DAILYPRN PRN ORAL Constipation 01/14/20 14:30 02/13/20 14:29 Assessment/Plan Problem List: (1) Suspected COVID-19 virus infection ICD Codes: Z20.828 - Contact with and (suspected) exposure to other viral communicable diseases SNOMED: 145933087 (2) Weakness ICD Codes: R53.1 - Weakness SNOMED: 59120049 (3) Pneumonia Assessment & Plan: Lungs/pleura: Bibasilar opacities may represent atelectasis versus pneumonia. Small bilateral pleural effusions and/or pleural thickening. Background of chronic interstitial lung changes and probable emphysema. Heart/mediastinum: Enlargement of the cardiac silhouette. Atherosclerotic calcifications of the aorta. Soft tissues: Unremarkable. Bones: No acute fracture. Generative changes of the acromioclavicular joints. Upper abdomen: Normal. IMPRESSION: 1. Bibasilar opacities may represent atelectasis versus pneumonia. Small bilateral pleural effusions and/or pleural thickening. 2. Background of chronic interstitial lung changes and probable emphysema. ICD Codes: J18.9 - Pneumonia, unspecified organism SNOMED: 362438924 Qualifiers: Qualified Codes: J18.9 - Pneumonia, unspecified organism (4) CHF (congestive heart failure) ICD Codes: I50.9 - Heart failure, unspecified SNOMED: 32074803 (5) Abdominal pain Assessment & Plan: currently no abdominal pain states had prior but more like reflux rx given will monitor ICD Codes: R10.9 - Unspecified abdominal pain SNOMED: 35006074 (6) Lower extremity ulceration Assessment & Plan: right leg medial aspect venous stasis ulcer noted 4cm x 3cm with surrounding tissue raised edges. no active drainage, no signs of active infection venous incompetence noted patients has had for some time but without significant improvement unknown prior trauma tender on palpation with some granulation tissue. no necrotic tissue or eschar also with sacral wound wash wound daily with normal saline, apply therahoney and foam dressing keep legs elevated turn q2h off load pressure will follow with recs thank you ICD Codes: L97.909 - Non-pressure chronic ulcer of unspecified part of unspecified lower leg with unspecified severity SNOMED: 53281165, 533980377 Gianluca Cummins Jan 15, 2020 21:45
--- NOTE | 2020-01-15 22:37 | NUR ---
NURSE NOTES: Patient had a rhythm strip with 6 consecutive PVCs heart rate of 66. Patient is asymptomatic. Left a message for Dr. Reeves informing him.
[2020-01-16] VITALS (7 sets, daily range): BP systolic 105–128; BP diastolic 50–78
--- NOTE | 2020-01-16 03:23 | NUR ---
NURSE NOTES:Reported from Rosendo from [facility] that patient is VRE rectum positive, rn informed.
[2020-01-16 05:35] LABS: BASOPHILS % (AUTO) 1.8 % (0.0-2.0); EOSINOPHILS % (AUTO) 12.1 % (0.0-3.0); HEMATOCRIT 30.5 % (37.0-47.0); HEMOGLOBIN 9.3 G/DL (12.0-16.0); LYMPHOCYTES % (AUTO) 15.5 % (20.0-45.0); MEAN CORPUSCULAR VOLUME 85 FL (80-99); NEUTROPHILS % (AUTO) 62.6 % (45.0-75.0); PLATELET COUNT 483 K/UL (150-450); RED BLOOD COUNT 3.61 M/UL (4.20-5.40); RED CELL DISTRIBUTION WIDTH 19.6 % (11.6-14.8); WHITE BLOOD COUNT 8.3 K/UL (4.8-10.8)
[2020-01-16 05:53] LABS: ANION GAP 9 mmol/L (5-15); BLOOD UREA NITROGEN 8 mg/dL (7-18); CALCIUM 9.1 MG/DL (8.5-10.1); CARBON DIOXIDE 30 MMOL/L (21-32); CHLORIDE 106 MMOL/L (98-107); CREATININE 0.7 MG/DL (0.55-1.30); POTASSIUM 3.8 MMOL/L (3.5-5.1); SODIUM 145 MMOL/L (136-145)
--- NOTE | 2020-01-16 07:33 | NUR ---
HAND-OFF: Report given to CHRISTINA Villalobos. Patient shows no signs of distress at this time. Endorsed plan of care..
--- NOTE | 2020-01-16 07:45 | NUR ---
NURSE NOTES: pt in stable condition,sitting in bed. Pt is no complaining of pain. environmental monitoring specialist on, no signs of respiratory or cardiac distress at this time. bed locked and in lowest position. Call light within reach, side rails up x2, bed alarm on. Will continue to monitor pt.
--- NOTE | 2020-01-16 07:58 | General Progress Note ---
Assessment/Plan Assessment/Plan: 74 yr F w/ Hx HTN, CHF, DM2 admitted via ED with SOB c/w CHF exacerbation w/ suspected underlying PNA undergoing COVID 19 rule out. #Rule out COVID 19 #Suspected PNA #COPD/Emphysema #Acute hypoxic respiratory failure (suspect pts sats < 88% on RA should be taken off O2 w/ pulm infiltrates and CHF) - cont. in pt medical care - Pulm consult - COVID 19 PCR -> Negative - pt may need second COVID for d/c back to [place], d/w CM - cont. COVID 19 isolation precautions for now - Blood Cx NGTD - F/u sputum cx's - Supplemental O2 as needed - Nebs prn for SOB/Wheeze - c/w Azithromycin & Ceftriaxone (01/13 - ) - ID consult, recs appreciated #Acute decompensated CHF - security monitor - serial tn/ekg -> neg x 3 - UA not c/w infection - 1.5 L fluid restriction, cardiac diet - strict i/o's and daily weights - Trend chem, goal K>4, Mag>2 - workup and abx as above - TTE pending - BNP 6k>>7k>>6k - cont. Lasix 40 IV BID, goal neg 1L per day - cardiology consult, recs appreciated #Venous Stasis Ulcers -Wound care following, recs appreciated Dispo: pt is from [facility], for dispo planning I spent 36 min on this case and 18 min was dedicated to counseling and care coordination including discussion including communication w/RN, CM, Cardiology. Additional 32 mins spent on non-face to face time w/chart review, H&P, progress notes, labs and radiographic findings. Time of this note may not reflect the time of the clinical encounter. Subjective Allergies: Coded Allergies: No Known Allergies (Unverified , 01/14/20) Subjective F/u for acute CHF exacerbation. BNP 6k, now 7k. Pt w/negative 4L yesterday. Pt w/no SOB, CP or LE pain at this time. Objective Last 24 Hour Vital Signs Date Time Temp Pulse Resp B/P (MAP) Pulse Ox O2 Delivery O2 Flow Rate FiO2 01/16/20 04:00 98.0 60 18 105/50 (68) 98 01/16/20 04:00 64 01/16/20 00:00 64 01/16/20 00:00 98.2 64 20 123/57 (79) 99 01/15/20 21:40 97.7 01/15/20 21:00 Nasal Cannula 1.0 01/15/20 20:00 98.3 82 19 113/49 (70) 96 01/15/20 20:00 69 01/15/20 18:30 97.7 71 18 111/40 (63) 95 01/15/20 18:00 98.6 78 18 117/59 99 Nasal Cannula 1.0 01/15/20 16:07 98.6 71 16 125/59 97 Nasal Cannula 1.0 01/15/20 15:13 98.6 01/15/20 13:20 98.6 70 15 121/57 97 Nasal Cannula 1.0 01/15/20 11:30 Nasal Cannula 1.0 01/15/20 11:12 98.6 62 17 117/53 95 Nasal Cannula 1.0 01/15/20 09:12 98.6 68 20 124/47 96 Nasal Cannula 1.0 Intake and Output 01/15/20 01/16/20 19:00 07:00 Output Total 2550 ml 2000 ml Balance -2550 ml -2000 ml Output Urine Total 2550 ml 2000 ml Laboratory Tests 01/15/20 14:00: Troponin I 0.002 01/16/20 04:00: Sodium Level 145, Potassium Level 3.8, Chloride Level 106, Carbon Dioxide Level 30, Anion Gap 9, Blood Urea Nitrogen 8, Creatinine 0.7, Estimat Glomerular Filtration Rate > 60, Glucose Level 77, Calcium Level 9.1 01/16/20 04:15: White Blood Count 8.3, Red Blood Count 3.61L, Hemoglobin 9.3L, Hematocrit 30.5L , Mean Corpuscular Volume 85, Mean Corpuscular Hemoglobin 25.8L, Mean Corpuscular Hemoglobin Concent 30.5L, Red Cell Distribution Width 19.6H, Platelet Count 483H, Mean Platelet Volume 4.9L, Neutrophils (%) (Auto) 62.6, Lymphocytes (%) (Auto) 15.5L, Monocytes (%) (Auto) 8.0, Eosinophils (%) (Auto) 12.1H, Basophils (%) (Auto) 1.8 Height (Feet): 5 Height (Inches): 5.00 Weight (Pounds): 141 Objective General Appearance: WD/WN, no apparent distress HEENT: NCAT, EOMI Neck: supple Respiratory/Chest: lungs clear, normal breath sounds, no respiratory distress, no accessory muscle use Cardiovascular/Chest: normal peripheral pulses, normal rate, regular rhythm, no gallop/murmur, JVD Abdomen: normal bowel sounds, non tender, soft Extremities: normal inspection, no edema appreciated Hannah Killian M.D. Jan 16, 2020 07:58
[2020-01-16] MEDS: Enoxaparin 40mg Inj SUBQ SCH (09:50)
[2020-01-16] MEDS: Azithromycin 500 MG in NS 275 ML IV SCH (09:51)
[2020-01-16] MEDS: Aspirin Baby 81mg ORAL SCH (09:53)
[2020-01-16] MEDS: cefTRIAXone 1 GM in NS 55 ML IVPB SCH (09:53)
[2020-01-16] MEDS: Docusate 100mg cap ORAL SCH ×2 (09:54→21:40)
--- NOTE | 2020-01-16 11:05 | NUR ---
NURSE NOTES: pt, tested negative for covid, red Stearns is aware. she will decided later on if pt needs a second covid test.
--- NOTE | 2020-01-16 12:34 | NUR ---
RD ASSESSMENT & RECOMMENDATIONS SEE CARE ACTIVITY FOR COMPLETE ASSESSMENT DAILY ESTIMATED NEEDS: Needs based on Cardiac, wounds/ 60kg abw 25-30 kcals/kg 5292-7621 total kcals 1.25-1.5 g protein/kg 75-90 g total protein 1500ml fluid restriction per MD mL/kg . total fluid mLs NUTRITION DIAGNOSIS: * Increased prot intake needs R/T wound healing as evidenced by admitted w/ multiple wounds including open wounds @ Lt ankle and Lt buttock per photos, pending evaluation. * Altered nutrition related lab values R/T CHF as evidenced by elev BNP (7238->6366), on Lasix and 1.5 L fluid restriction. CURRENT DIET:CARDIAC PO DIET RECOMMENDATIONS: LOW NA/ texture as tolerated ADDITIONAL RECOMMENDATIONS: * Daily calibrated bedscale wt : CHF dx * Wound healing: add MVI x 1, Vit C 500mg QD, ZnSO4 220mg QD x 10 days NEHEMIAS BID as tolerated/ f/up w/ WC eval * Fluid restriction per MD * Monitor lytes closely w/ Lasix, replete as needed
--- NOTE | 2020-01-16 13:06 | Surgery Progress Note ---
Surgery Progress Note Subjective Additional Comments doing well comfortable dressings intact labs noted rx written Objective Last 24 Hour Vital Signs Date Time Temp Pulse Resp B/P (MAP) Pulse Ox O2 Delivery O2 Flow Rate FiO2 01/16/20 08:10 98.0 3 20 119/59 (79) 96 01/16/20 04:00 98.0 60 18 105/50 (68) 98 01/16/20 04:00 64 01/16/20 00:00 64 01/16/20 00:00 98.2 64 20 123/57 (79) 99 01/15/20 21:40 97.7 01/15/20 21:00 Nasal Cannula 1.0 01/15/20 20:00 98.3 82 19 113/49 (70) 96 01/15/20 20:00 69 01/15/20 18:30 97.7 71 18 111/40 (63) 95 01/15/20 18:00 98.6 78 18 117/59 99 Nasal Cannula 1.0 01/15/20 16:07 98.6 71 16 125/59 97 Nasal Cannula 1.0 01/15/20 15:13 98.6 01/15/20 13:20 98.6 70 15 121/57 97 Nasal Cannula 1.0 I&O Intake and Output 01/15/20 01/16/20 19:00 07:00 Output Total 2550 ml 2000 ml Balance -2550 ml -2000 ml Output Urine Total 2550 ml 2000 ml Dressing: saturated Wound: clean Cardiovascular: RSR Respiratory: clear Abdomen: soft, flat, non-tender, present bowel sounds Extremities: no tenderness, no cyanosis Laboratory Tests Test 01/15/20 14:00 01/16/20 04:00 01/16/20 04:15 Troponin I 0.002 ng/mL (0.000-0.056) 0.000 ng/mL (0.000-0.056) Sodium Level 145 MMOL/L (136-145) Potassium Level 3.8 MMOL/L (3.5-5.1) Chloride Level 106 MMOL/L (98-107) Carbon Dioxide Level 30 MMOL/L (21-32) Anion Gap 9 mmol/L (5-15) Blood Urea Nitrogen 8 mg/dL (7-18) Creatinine 0.7 MG/DL (0.55-1.30) Estimat Glomerular Filtration Rate > 60 mL/min (>60) Glucose Level 77 MG/DL (74-106) Calcium Level 9.1 MG/DL (8.5-10.1) Pro-B-Type Natriuretic Peptide 6366 pg/mL (0-125) H White Blood Count 8.3 K/UL (4.8-10.8) Red Blood Count 3.61 M/UL (4.20-5.40) L Hemoglobin 9.3 G/DL (12.0-16.0) L Hematocrit 30.5 % (37.0-47.0) L Mean Corpuscular Volume 85 FL (80-99) Mean Corpuscular Hemoglobin 25.8 PG (27.0-31.0) L Mean Corpuscular Hemoglobin Concent 30.5 G/DL (32.0-36.0) L Red Cell Distribution Width 19.6 % (11.6-14.8) H Platelet Count 483 K/UL (150-450) H Mean Platelet Volume 4.9 FL (6.5-10.1) L Neutrophils (%) (Auto) 62.6 % (45.0-75.0) Lymphocytes (%) (Auto) 15.5 % (20.0-45.0) L Monocytes (%) (Auto) 8.0 % (1.0-10.0) Eosinophils (%) (Auto) 12.1 % (0.0-3.0) H Basophils (%) (Auto) 1.8 % (0.0-2.0) Plan Problems: (1) Suspected COVID-19 virus infection (2) Weakness (3) Pneumonia Assessment & Plan: Lungs/pleura: Bibasilar opacities may represent atelectasis versus pneumonia. Small bilateral pleural effusions and/or pleural thickening. Background of chronic interstitial lung changes and probable emphysema. Heart/mediastinum: Enlargement of the cardiac silhouette. Atherosclerotic calcifications of the aorta. Soft tissues: Unremarkable. Bones: No acute fracture. Generative changes of the acromioclavicular joints. Upper abdomen: Normal. IMPRESSION: 1. Bibasilar opacities may represent atelectasis versus pneumonia. Small bilateral pleural effusions and/or pleural thickening. 2. Background of chronic interstitial lung changes and probable emphysema. (4) CHF (congestive heart failure) (5) Abdominal pain Assessment & Plan: currently no abdominal pain states had prior but more like reflux rx given will monitor DAILY ESTIMATED NEEDS: Needs based on Cardiac, wounds/ 60kg abw 25-30 kcals/kg 6363-4553 total kcals 1.25-1.5 g protein/kg 75-90 g total protein 1500ml fluid restriction per MD mL/kg . total fluid mLs NUTRITION DIAGNOSIS: * Increased prot intake needs R/T wound healing as evidenced by admitted w/ multiple wounds including open wounds @ Lt ankle and Lt buttock per photos, pending evaluation. * Altered nutrition related lab values R/T CHF as evidenced by elev BNP (7238->6366), on Lasix and 1.5 L fluid restriction. CURRENT DIET:CARDIAC PO DIET RECOMMENDATIONS: LOW NA/ texture as tolerated ADDITIONAL RECOMMENDATIONS: * Daily calibrated bedscale wt : CHF dx * Wound healing: add MVI x 1, Vit C 500mg QD, ZnSO4 220mg QD x 10 days NEHEMIAS BID as tolerated/ f/up w/ WC eval * Fluid restriction per MD * Monitor lytes closely w/ Lasix, replete as needed (6) Lower extremity ulceration Assessment & Plan: right leg medial aspect venous stasis ulcer noted 4cm x 3cm with surrounding tissue raised edges. no active drainage, no signs of active infection venous incompetence noted patients has had for some time but without significant improvement unknown prior trauma tender on palpation with some granulation tissue. no necrotic tissue or eschar also with sacral wound wash wound daily with normal saline, apply therahoney and foam dressing keep legs elevated turn q2h off load pressure will follow with recs thank you Gianluca Cummins Jan 16, 2020 13:06
--- NOTE | 2020-01-16 13:48 | NUR ---
NURSE NOTES:WOUND CARE NOTES:Pt presented on admission with multiple pressure injuries,Stasis ulcer R lateral Malleolus. Full thickness pressure injury R lower gluteus. Base of wound is 90% beefy red,10% scattered slough,edges adherent to base of wound. Small amt sanguineous exudate noted. In addition, there is a full thickness pressure injury. Base of wound is beefy red and moist . Small amt sanguineous exudate noted. Three additional Unstageable pressure injuries noted to upper R gluteus. Pressure injury upper/medial R gluteal cheek has 100% slough.Pressure injury Uppermost R buttocks has 100% slough. Just inferior is 3rd pressure Unstageable pressure injury that has 100% slough. Periwound skin is maroon in colour with denuded area at cleft of buttocks. Partially opened DTPI R ischium. Base of wound is maroon with scattered open areas within base of injury. No odor or exudate noted. An area of hyperpigmentation from previous wound noted to L buttocks with surrounding maroon discoloration. Partial thickness pressure injury posterior upper R thigh. Base of wound is moist and viable with surrounding non-blanching erythema. Full thickness pressure injury Lateral L malleolus. Onyx granulation at base of wound. Edges are adherent to base of wound. Hemosiderin periwound . Purple marker noted along borders of wound. Non-blanching erythema L Hallux. Non-blanching erythema noted to R st metatarsal. Both heels are boggy with non-blanching erythema. Historical scars noted to distal/lateral R tibia,Lateral R malleolus and dorsal R foot. Tx.Plan:Cleanse wounds R buttocks/R Ischium with TheraHoney. Apply Moisture Barrier Paste periwounds and to L buttocks. Cover with Optifoam drsgs. Change every 3 days and prn. Cleanse wound L lateral Malleolus. Apply Therahoney. Apply Cavilon Skin Barrier periwound. Cover with Optifoam drsg. Change every 3 days and prn. Apply Moisture Barrier Paste to posterior and medial aspects of both upper thighs with each Incontinence care. Apply Cavilon Skin Barrier to both heels.Cover each heel with Optifoam drsg. Change every 7 days and prn. Reposition at least every 2hours or as tolerated. Off-load heels with pillow. APM/LETICIA Mattress. Reposition at least every 2hours or as tolerated. Off-load heels with pillow.
--- NOTE | 2020-01-16 13:54 | Pulmonology Progress Note ---
Assessment/Plan Assessment/Plan IMPRESSION: 1. Decompensated congestive heart failure. 2. Hypertension. 3. Diabetes mellitus. 4. Rule out COVID-19. DISCUSSION: Initial COVID-19 testing negative. 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 Currently, the patient is saturating well on low-flow oxygen. Continue home medications. Continue Lasix. Pawan Holland M.D. Subjective Interval Events: COVID 19 pcr x 1 negative Constitutional: Reports: no symptoms HEENT: Repors: no symptoms Respiratory: Reports: shortness of breath Cardiovascular: Reports: no symptoms Gastrointestinal/Abdominal: Reports: no symptoms Genitourinary: Reports: no symptoms Allergies: Coded Allergies: No Known Allergies (Unverified , 01/14/20) Objective Last 24 Hour Vital Signs Date Time Temp Pulse Resp B/P (MAP) Pulse Ox O2 Delivery O2 Flow Rate FiO2 01/16/20 08:10 98.0 3 20 119/59 (79) 96 01/16/20 04:00 98.0 60 18 105/50 (68) 98 01/16/20 04:00 64 01/16/20 00:00 64 01/16/20 00:00 98.2 64 20 123/57 (79) 99 01/15/20 21:40 97.7 01/15/20 21:00 Nasal Cannula 1.0 01/15/20 20:00 98.3 82 19 113/49 (70) 96 01/15/20 20:00 69 01/15/20 18:30 97.7 71 18 111/40 (63) 95 01/15/20 18:00 98.6 78 18 117/59 99 Nasal Cannula 1.0 01/15/20 16:07 98.6 71 16 125/59 97 Nasal Cannula 1.0 01/15/20 15:13 98.6 Intake and Output 01/15/20 01/16/20 19:00 07:00 Output Total 2550 ml 2000 ml Balance -2550 ml -2000 ml Output Urine Total 2550 ml 2000 ml General Appearance: no acute distress HEENT: normocephalic, mucous membranes moist, PERRL Respiratory/Chest: chest wall non-tender Cardiovascular: normal peripheral pulses Abdomen: normal bowel sounds Extremities: no cyanosis Neurologic/Psychiatric: alert Microbiology Date/Time Source Procedure Growth Status 01/14/20 17:38 Blood Blood Culture - Preliminary NO GROWTH AFTER 24 HOURS Resulted 01/14/20 17:23 Blood Blood Culture - Preliminary NO GROWTH AFTER 24 HOURS Resulted 01/14/20 11:25 Nasal Nares MRSA Culture - Final NO METHICILLIN RESISTANT STAPH AUREUS... Complete 01/14/20 11:25 Nasopharynx Coronavirus COVID-19 PCR (PATRIC) - Final Complete 01/14/20 11:25 Rectum VRE Culture - Final Enterococcus Faecium - Vre Enterococcus Faecalis - Vre Complete Laboratory Tests 01/15/20 14:00: Troponin I 0.002 01/16/20 04:00: Troponin I 0.000, Sodium Level 145, Potassium Level 3.8, Chloride Level 106, Carbon Dioxide Level 30, Anion Gap 9, Blood Urea Nitrogen 8, Creatinine 0.7, Estimat Glomerular Filtration Rate > 60, Glucose Level 77, Calcium Level 9.1, Pro-B-Type Natriuretic Peptide 6366H 01/16/20 04:15: White Blood Count 8.3, Red Blood Count 3.61L, Hemoglobin 9.3L, Hematocrit 30.5L , Mean Corpuscular Volume 85, Mean Corpuscular Hemoglobin 25.8L, Mean Corpuscular Hemoglobin Concent 30.5L, Red Cell Distribution Width 19.6H, Platelet Count 483H, Mean Platelet Volume 4.9L, Neutrophils (%) (Auto) 62.6, Lymphocytes (%) (Auto) 15.5L, Monocytes (%) (Auto) 8.0, Eosinophils (%) (Auto) 12.1H, Basophils (%) (Auto) 1.8 Current Medications Medications (Trade) Dose Ordered Sig/Yolanda Route PRN Reason Start Time Stop Time Status Last Admin Dose Admin Acetaminophen (Tylenol) 650 mg Q4H PRN ORAL Mild Pain (Pain Scale 1-3) 01/14/20 14:30 02/13/20 14:29 01/15/20 21:10 Acetaminophen (Tylenol) 650 mg Q4H PRN ORAL FEVER 01/14/20 14:30 02/13/20 14:29 Acetaminophen (Tylenol) 650 mg Q4H PRN RECTAL FEVER 01/14/20 14:30 02/13/20 14:29 Acetaminophen (Tylenol) 650 mg Q4H PRN RECTAL Mild Pain (Pain Scale 1-3) 01/14/20 14:30 02/13/20 14:29 Albuterol/ Ipratropium (Albuterol/ Ipratropium) 3 ml Q6HRT PRN HHN SOB/Wheeze 01/15/20 15:00 01/20/20 14:59 Ascorbic Acid (Vitamin C) 500 mg DAILY ORAL 01/17/20 09:00 02/16/20 08:59 Aspirin (ASA) 162 mg DAILY ORAL 01/15/20 09:00 02/29/20 08:59 01/16/20 09:53 Azithromycin 500 mg/Sodium Chloride 275 ml @ 275 mls/hr DAILY IV 01/15/20 10:00 01/20/20 09:59 01/16/20 09:51 Ceftriaxone Sodium 1 gm/ Sodium Chloride 55 ml @ 110 mls/hr DAILY IVPB 01/15/20 09:00 01/22/20 08:59 01/16/20 09:53 Diphenhydramine HCl (Benadryl) 25 mg Q6H PRN ORAL Itching/Pruritis/insomnia 01/14/20 14:30 02/13/20 14:29 Docusate Sodium (Colace) 100 mg EVERY 12 HOURS ORAL 01/14/20 21:00 02/13/20 20:59 01/16/20 09:54 Enoxaparin Sodium (Lovenox) 40 mg DAILY SUBQ 01/15/20 09:00 04/14/20 08:59 01/16/20 09:50 Famotidine (Pepcid) 20 mg Q12H PRN ORAL gerd 01/14/20 14:30 04/13/20 14:29 Furosemide (Lasix) 40 mg BID IV 01/14/20 18:00 02/13/20 17:59 01/16/20 09:51 Morphine Sulfate (Morphine Sulfate) 2 mg Q4H PRN IVP Moderate Pain (Pain Scale 4-6) 01/14/20 14:30 01/21/20 14:29 Morphine Sulfate (Morphine Sulfate) 4 mg Q4H PRN IVP Severe Pain (Pain Scale 7-10) 01/14/20 14:30 01/21/20 14:29 Multivitamins (Multivitamins) 1 tab DAILY ORAL 01/17/20 09:00 02/16/20 08:59 Nitroglycerin (Ntg) 0.4 mg Q5M PRN SL Prn Chest Pain 01/14/20 14:30 02/13/20 14:29 Ondansetron HCl (Zofran) 4 mg Q6H PRN IVP Nausea & Vomiting 01/14/20 14:30 02/13/20 14:29 Polyethylene Glycol (Miralax) 17 gm DAILYPRN PRN ORAL Constipation 01/14/20 14:30 02/13/20 14:29 Zinc Sulfate (Zinc Sulfate) 220 mg DAILY ORAL 01/17/20 09:00 01/27/20 08:59 Pawan Holland MD Jan 16, 2020 13:54
--- NOTE | 2020-01-16 13:58 | NUR ---
DISCHARGE PLANNING SPOKE WITH MIGUEL ANGEL AT [facility]. THEY ONLY NEED 1 COVID NEGATIVE TO ACCEPT PATIENT BACK FAXED CLINICALS TO [facility] T: [phone] F: [phone] NO DISCHARGE ORDER AT THIS TIME
--- NOTE | 2020-01-16 14:51 | Cardiac Electrophysiology PN ---
Assessment/Plan Assessment/Plan 1. Shortness of breath and elevated BNP of more than 6000 due to CHF and EF 25%. Ruled out for PA. On Lasix 40 mg IV b.i.d. Add Coreg 3.125 bid and Lisinopril 10 daily 2. NSVT. Due to CMP 3. LBBB 4. Pneumonia. On ceftriaxone, azithromycin and the COVID-19 test is negative 5. Anemia, hemoglobin 8.5. 6. Diabetes. DW RN Subjective Subjective Had NSVT. Feeling better. Objective Last 24 Hour Vital Signs Date Time Temp Pulse Resp B/P (MAP) Pulse Ox O2 Delivery O2 Flow Rate FiO2 01/16/20 12:00 92 01/16/20 09:00 Nasal Cannula 1.0 01/16/20 08:10 98.0 3 20 119/59 (79) 96 01/16/20 08:00 79 01/16/20 04:00 98.0 60 18 105/50 (68) 98 01/16/20 04:00 64 01/16/20 00:00 64 01/16/20 00:00 98.2 64 20 123/57 (79) 99 01/15/20 21:40 97.7 01/15/20 21:00 Nasal Cannula 1.0 01/15/20 20:00 98.3 82 19 113/49 (70) 96 01/15/20 20:00 69 01/15/20 18:30 97.7 71 18 111/40 (63) 95 01/15/20 18:00 98.6 78 18 117/59 99 Nasal Cannula 1.0 01/15/20 16:07 98.6 71 16 125/59 97 Nasal Cannula 1.0 01/15/20 15:13 98.6 Intake and Output 01/15/20 01/16/20 19:00 07:00 Output Total 2550 ml 2000 ml Balance -2550 ml -2000 ml Output Urine Total 2550 ml 2000 ml Laboratory Tests Test 01/16/20 04:00 01/16/20 04:15 Sodium Level 145 MMOL/L (136-145) Potassium Level 3.8 MMOL/L (3.5-5.1) Chloride Level 106 MMOL/L (98-107) Carbon Dioxide Level 30 MMOL/L (21-32) Anion Gap 9 mmol/L (5-15) Blood Urea Nitrogen 8 mg/dL (7-18) Creatinine 0.7 MG/DL (0.55-1.30) Estimat Glomerular Filtration Rate > 60 mL/min (>60) Glucose Level 77 MG/DL (74-106) Calcium Level 9.1 MG/DL (8.5-10.1) Troponin I 0.000 ng/mL (0.000-0.056) Pro-B-Type Natriuretic Peptide 6366 pg/mL (0-125) H White Blood Count 8.3 K/UL (4.8-10.8) Red Blood Count 3.61 M/UL (4.20-5.40) L Hemoglobin 9.3 G/DL (12.0-16.0) L Hematocrit 30.5 % (37.0-47.0) L Mean Corpuscular Volume 85 FL (80-99) Mean Corpuscular Hemoglobin 25.8 PG (27.0-31.0) L Mean Corpuscular Hemoglobin Concent 30.5 G/DL (32.0-36.0) L Red Cell Distribution Width 19.6 % (11.6-14.8) H Platelet Count 483 K/UL (150-450) H Mean Platelet Volume 4.9 FL (6.5-10.1) L Neutrophils (%) (Auto) 62.6 % (45.0-75.0) Lymphocytes (%) (Auto) 15.5 % (20.0-45.0) L Monocytes (%) (Auto) 8.0 % (1.0-10.0) Eosinophils (%) (Auto) 12.1 % (0.0-3.0) H Basophils (%) (Auto) 1.8 % (0.0-2.0) Microbiology Date/Time Source Procedure Growth Status 01/14/20 17:38 Blood Blood Culture - Preliminary NO GROWTH AFTER 24 HOURS Resulted 01/14/20 17:23 Blood Blood Culture - Preliminary NO GROWTH AFTER 24 HOURS Resulted 01/14/20 11:25 Nasal Nares MRSA Culture - Final NO METHICILLIN RESISTANT STAPH AUREUS... Complete 01/14/20 11:25 Nasopharynx Coronavirus COVID-19 PCR (PATRIC) - Final Complete 01/14/20 11:25 Rectum VRE Culture - Final Enterococcus Faecium - Vre Enterococcus Faecalis - Vre Complete Objective HEAD AND NECK: No JVD. LUNGS: Clear. CARDIOVASCULAR: Regular S1 and S2 with no gallop. ABDOMEN: Soft. EXTREMITIES: No pitting edema. Diony Reeves MD Jan 16, 2020 14:51
--- NOTE | 2020-01-16 15:55 | NUR ---
CASE MANAGEMENT:REVIEW 74 YR OLD FEMALE BIBA FROM [facility] CC: ABNORMAL LABS. WEAKNESS SI: SUSPECTED COVID 19. PNA 98.6 89 18 124/60 94% ON 5L/NC H/H-8.5/29.2 BNP+6343 TROPONIN(-) IS: IV VANCOMYCIN IV CEFEPIME IV LASIX LOVENOX SQ 2DECHO CHEST XRAY PT EVAL : TO TELEMETRY DCP: FROM [facility]
--- NOTE | 2020-01-16 19:41 | NUR ---
HAND-OFF: Report given to Tiana/CHRISTINA,pt in stable condition, endorsed pt needs to be turned and lots of barrier cream for her bottoms it has diaper rash and a wound.
--- NOTE | 2020-01-16 19:47 | NUR ---
NURSE NOTES: Received patient in bed, awake ,alert, oriented x3, has a Sanchez catheter on secured and draining well, patient is a fall risk , call light is on, bed alarm is on, bed is locked, frequent rounds will be made to ensure patients safety.
[2020-01-16] MEDS: Morphine Sulfate 2mg/ml Inj(IV/IM USE ONLY) IVP PRN (23:14)
[2020-01-17] VITALS: BP 105/52
[2020-01-17 04:00] VITALS: BP 120/64
--- NOTE | 2020-01-17 07:30 | NUR ---
HAND-OFF: Report given to James VASQUEZ.
[2020-01-17 07:31] LABS: BASOPHILS % (AUTO) 1.6 % (0.0-2.0); EOSINOPHILS % (AUTO) 11.8 % (0.0-3.0); HEMATOCRIT 28.4 % (37.0-47.0); HEMOGLOBIN 8.8 G/DL (12.0-16.0); LYMPHOCYTES % (AUTO) 18.9 % (20.0-45.0); MEAN CORPUSCULAR VOLUME 83 FL (80-99); MONOCYTES % (AUTO) 12.1 % (1.0-10.0); NEUTROPHILS % (AUTO) 55.6 % (45.0-75.0); PLATELET COUNT 419 K/UL (150-450); RED BLOOD COUNT 3.42 M/UL (4.20-5.40); RED CELL DISTRIBUTION WIDTH 19.4 % (11.6-14.8); WHITE BLOOD COUNT 7.5 K/UL (4.8-10.8)
[2020-01-17 07:55] LABS: ANION GAP 5 mmol/L (5-15); BLOOD UREA NITROGEN 8 mg/dL (7-18); CALCIUM 8.1 MG/DL (8.5-10.1); CARBON DIOXIDE 38 MMOL/L (21-32); CHLORIDE 101 MMOL/L (98-107); CREATININE 0.7 MG/DL (0.55-1.30); SODIUM 144 MMOL/L (136-145)
[2020-01-17 08:30] VITALS: BP 120/69
[2020-01-17 08:34] LABS: POTASSIUM 2.5 MMOL/L (3.5-5.1)
--- NOTE | 2020-01-17 08:43 | General Progress Note ---
Assessment/Plan Assessment/Plan: 74 yr F w/ Hx HTN, CHF, DM2 admitted via ED with SOB c/w CHF exacerbation w/ suspected underlying PNA undergoing COVID 19 rule out. #Suspected PNA #COPD/Emphysema #Acute hypoxic respiratory failure (suspect pts sats < 88% on RA should be taken off O2 w/ pulm infiltrates and CHF) - cont. in pt medical care - Pulm consult - COVID 19 PCR -> Negative - No need to retest COVID on pt per /LA - d/c COVID 19 isolation precautions for now - Blood Cx NGTD - Sputum Cx normal erickson - Supplemental O2 as needed - Nebs prn for SOB/Wheeze - abx per ID - cont. Azithromycin & Ceftriaxone (01/13 - ) - ID following, recs appreciated #Enterococcus UTI - abx per ID - management as above #Acute decompensated CHF #Acute on Chronic systolic heart failure #NSVT #PVCs #elevated BNP - engine monitor - BNP likely 2/2 CHF - 1.5 L fluid restriction, cardiac diet - strict i/o's and daily weights - workup and abx as above - TTE pending - cont. Lasix 40 IV BID, goal neg 1L per day - cardiology consult, pt will need cardiac cath once infection cleared #Hypokalemia - replace - pt on lasix for acute HF - potassium 20 mEq q/daily while on lasix #Venous Stasis Ulcers -Wound care following, recs appreciated Dispo: pt is from [facility], for dispo planning I spent 36 min on this case and 18 min was dedicated to counseling and care coordination including discussion including communication w/RN, NERISSA. Spent an additional 32 mins discussing case w/instrument technician helper, Dr Reeves and ID Dr. Maurice reguarding medications. Time of this note may not reflect the time of the clinical encounter. Subjective Allergies: Coded Allergies: No Known Allergies (Unverified , 01/14/20) Subjective F/u for acute CHF exacerbation. Yesterday w/NSVT, 6 beats today w/frequent PVCs. States is feeling better today. Pt denies CP, SOB, abd pain at this time. Objective Last 24 Hour Vital Signs Date Time Temp Pulse Resp B/P (MAP) Pulse Ox O2 Delivery O2 Flow Rate FiO2 01/17/20 04:35 62 4/28/20 04:00 98.1 68 20 120/64 (82) 92 01/17/20 00:48 65 01/17/20 00:00 98.2 66 20 105/52 (69) 97 01/16/20 23:44 98.1 01/16/20 22:13 82 01/16/20 21:54 98.1 87 22 128/74 (92) 94 01/16/20 21:52 Nasal Cannula 1.0 01/16/20 21:40 78 118/74 01/16/20 20:00 98.1 84 18 127/74 (91) 95 01/16/20 16:00 86 01/16/20 16:00 96.8 60 19 124/78 (93) 98 01/16/20 12:00 92 01/16/20 12:00 96.7 70 20 120/61 (80) 96 01/16/20 09:00 Nasal Cannula 1.0 Intake and Output 01/16/20 01/17/20 19:00 07:00 Intake Total 280 ml Output Total 1200 ml 1000 ml Balance -920 ml -1000 ml Intake Oral 280 ml Output Urine Total 1200 ml 1000 ml # Voids 3 Laboratory Tests 01/17/20 05:59: White Blood Count 7.5, Red Blood Count 3.42L, Hemoglobin 8.8L, Hematocrit 28.4L , Mean Corpuscular Volume 83, Mean Corpuscular Hemoglobin 25.7L, Mean Corpuscular Hemoglobin Concent 30.9L, Red Cell Distribution Width 19.4H, Platelet Count 419, Mean Platelet Volume 5.3L, Neutrophils (%) (Auto) 55.6, Lymphocytes (%) (Auto) 18.9L, Monocytes (%) (Auto) 12.1H, Eosinophils (%) (Auto ) 11.8H, Basophils (%) (Auto) 1.6, Sodium Level 144, Potassium Level 2.5*L, Chloride Level 101, Carbon Dioxide Level 38H, Anion Gap 5, Blood Urea Nitrogen 8 , Creatinine 0.7, Estimat Glomerular Filtration Rate > 60, Glucose Level 101, Calcium Level 8.1L, Pro-B-Type Natriuretic Peptide 2767H Height (Feet): 5 Height (Inches): 5.00 Weight (Pounds): 141 Objective General Appearance: WD/WN, no apparent distress, sitting up in bed eating breakfast HEENT: NCAT, EOMI Neck: supple Respiratory/Chest: lungs clear, normal breath sounds, no respiratory distress, no accessory muscle use Cardiovascular/Chest: RRR, no gallop/murmur, JVD Abdomen: normal bowel sounds, non tender, soft Extremities: normal inspection, no edema appreciated Hannah Killian M.D. Jan 17, 2020 08:43
--- NOTE | 2020-01-17 08:48 | NUR ---
NURSE NOTES: DC dropplet isolatin pt is negative and no second test is needed per doctor Killian.
[2020-01-17] MEDS ORDERED: Zinc Sulfate 220mg cap ORAL SCH (09:00)
[2020-01-17] MEDS: cefTRIAXone 1 GM in NS 55 ML IVPB SCH (10:27)
[2020-01-17] MEDS: Azithromycin 500 MG in NS 275 ML IV SCH (10:28)
[2020-01-17] MEDS: Enoxaparin 40mg Inj SUBQ SCH (10:29)
[2020-01-17] MEDS: Ascorbic Acid 500mg tab ORAL SCH (10:33)
[2020-01-17] MEDS: Docusate 100mg cap ORAL SCH ×2 (10:33→20:23)
[2020-01-17] MEDS: Spironolactone 25mg tab ORAL SCH (10:33)
[2020-01-17] MEDS: Lisinopril 10mg tab ORAL SCH (10:34)
[2020-01-17] MEDS: Aspirin Baby 81mg ORAL SCH (10:34)
--- NOTE | 2020-01-17 10:51 | Pulmonology Progress Note ---
Assessment/Plan Assessment/Plan IMPRESSION: 1. Decompensated congestive heart failure. 2. Hypertension. 3. Diabetes mellitus. 4. Rule out COVID-19. DISCUSSION: Initial COVID-19 testing negative. 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 Currently, the patient is saturating well on low-flow oxygen. Continue home medications. Continue Lasix. Pawan Holland M.D. Subjective Interval Events: COVID 19 pcr x 1 negative Constitutional: Reports: no symptoms HEENT: Repors: no symptoms Respiratory: Reports: shortness of breath Cardiovascular: Reports: no symptoms Gastrointestinal/Abdominal: Reports: no symptoms Genitourinary: Reports: no symptoms Allergies: Coded Allergies: No Known Allergies (Unverified , 01/14/20) Objective Last 24 Hour Vital Signs Date Time Temp Pulse Resp B/P (MAP) Pulse Ox O2 Delivery O2 Flow Rate FiO2 01/17/20 10:34 120/69 01/17/20 10:32 75 120/69 01/17/20 08:56 Nasal Cannula 1.0 01/17/20 08:30 97.6 75 20 120/69 (86) 98 01/17/20 04:35 62 01/17/20 04:00 98.1 68 20 120/64 (82) 92 01/17/20 00:48 65 01/17/20 00:00 98.2 66 20 105/52 (69) 97 01/16/20 23:44 98.1 01/16/20 22:13 82 01/16/20 21:54 98.1 87 22 128/74 (92) 94 01/16/20 21:52 Nasal Cannula 1.0 01/16/20 21:40 78 118/74 01/16/20 20:00 98.1 84 18 127/74 (91) 95 01/16/20 16:00 86 01/16/20 16:00 96.8 60 19 124/78 (93) 98 01/16/20 12:00 92 01/16/20 12:00 96.7 70 20 120/61 (80) 96 Intake and Output 01/16/20 01/17/20 19:00 07:00 Intake Total 280 ml Output Total 1200 ml 1000 ml Balance -920 ml -1000 ml Intake Oral 280 ml Output Urine Total 1200 ml 1000 ml # Voids 3 General Appearance: no acute distress HEENT: normocephalic, mucous membranes moist, PERRL Respiratory/Chest: chest wall non-tender Cardiovascular: normal peripheral pulses Abdomen: normal bowel sounds Extremities: no cyanosis Neurologic/Psychiatric: alert Microbiology Date/Time Source Procedure Growth Status 01/14/20 17:38 Blood Blood Culture - Preliminary NO GROWTH AFTER 48 HOURS Resulted 01/14/20 17:23 Blood Blood Culture - Preliminary NO GROWTH AFTER 48 HOURS Resulted 01/14/20 11:25 Nasal Nares MRSA Culture - Final NO METHICILLIN RESISTANT STAPH AUREUS... Complete 01/14/20 11:25 Nasopharynx Coronavirus COVID-19 PCR (PATRIC) - Final Complete 01/14/20 16:20 Urine,Clean Catch Urine Culture - Final Enterococcus Faecalis Complete 01/14/20 11:25 Rectum VRE Culture - Final Enterococcus Faecium - Vre Enterococcus Faecalis - Vre Complete Laboratory Tests 01/17/20 05:59: White Blood Count 7.5, Red Blood Count 3.42L, Hemoglobin 8.8L, Hematocrit 28.4L , Mean Corpuscular Volume 83, Mean Corpuscular Hemoglobin 25.7L, Mean Corpuscular Hemoglobin Concent 30.9L, Red Cell Distribution Width 19.4H, Platelet Count 419, Mean Platelet Volume 5.3L, Neutrophils (%) (Auto) 55.6, Lymphocytes (%) (Auto) 18.9L, Monocytes (%) (Auto) 12.1H, Eosinophils (%) (Auto ) 11.8H, Basophils (%) (Auto) 1.6, Sodium Level 144, Potassium Level 2.5*L, Chloride Level 101, Carbon Dioxide Level 38H, Anion Gap 5, Blood Urea Nitrogen 8 , Creatinine 0.7, Estimat Glomerular Filtration Rate > 60, Glucose Level 101, Calcium Level 8.1L, Magnesium Level 1.9, Pro-B-Type Natriuretic Peptide 2767H Current Medications Medications (Trade) Dose Ordered Sig/Yolanda Route PRN Reason Start Time Stop Time Status Last Admin Dose Admin Acetaminophen (Tylenol) 650 mg Q4H PRN ORAL Mild Pain (Pain Scale 1-3) 01/14/20 14:30 02/13/20 14:29 01/15/20 21:10 Acetaminophen (Tylenol) 650 mg Q4H PRN ORAL FEVER 01/14/20 14:30 02/13/20 14:29 Acetaminophen (Tylenol) 650 mg Q4H PRN RECTAL FEVER 01/14/20 14:30 02/13/20 14:29 Acetaminophen (Tylenol) 650 mg Q4H PRN RECTAL Mild Pain (Pain Scale 1-3) 01/14/20 14:30 02/13/20 14:29 Albuterol/ Ipratropium (Albuterol/ Ipratropium) 3 ml Q6HRT PRN HHN SOB/Wheeze 01/15/20 15:00 01/20/20 14:59 Ascorbic Acid (Vitamin C) 500 mg DAILY ORAL 01/17/20 09:00 02/16/20 08:59 01/17/20 10:33 Aspirin (ASA) 162 mg DAILY ORAL 01/15/20 09:00 02/29/20 08:59 01/17/20 10:34 Azithromycin 500 mg/Sodium Chloride 275 ml @ 275 mls/hr DAILY IV 01/15/20 10:00 01/20/20 09:59 01/17/20 10:28 Carvedilol (Coreg) 3.125 mg EVERY 12 HOURS ORAL 01/16/20 21:00 02/15/20 20:59 01/17/20 10:32 Ceftriaxone Sodium 1 gm/ Sodium Chloride 55 ml @ 110 mls/hr DAILY IVPB 01/15/20 09:00 01/22/20 08:59 01/17/20 10:27 Diphenhydramine HCl (Benadryl) 25 mg Q6H PRN ORAL Itching/Pruritis/insomnia 01/14/20 14:30 02/13/20 14:29 Docusate Sodium (Colace) 100 mg EVERY 12 HOURS ORAL 01/14/20 21:00 02/13/20 20:59 01/17/20 10:33 Enoxaparin Sodium (Lovenox) 40 mg DAILY SUBQ 01/15/20 09:00 04/14/20 08:59 01/17/20 10:29 Famotidine (Pepcid) 20 mg Q12H PRN ORAL gerd 01/14/20 14:30 04/13/20 14:29 Furosemide (Lasix) 40 mg BID IV 01/14/20 18:00 02/13/20 17:59 01/17/20 10:29 Lisinopril (ZestriL) 10 mg DAILY ORAL 01/17/20 09:00 02/16/20 08:59 01/17/20 10:34 Morphine Sulfate (Morphine Sulfate) 2 mg Q4H PRN IVP Moderate Pain (Pain Scale 4-6) 01/14/20 14:30 01/21/20 14:29 01/16/20 23:14 Morphine Sulfate (Morphine Sulfate) 4 mg Q4H PRN IVP Severe Pain (Pain Scale 7-10) 01/14/20 14:30 01/21/20 14:29 Multivitamins (Multivitamins) 1 tab DAILY ORAL 01/17/20 09:00 02/16/20 08:59 01/17/20 10:34 Nitroglycerin (Ntg) 0.4 mg Q5M PRN SL Prn Chest Pain 01/14/20 14:30 02/13/20 14:29 Ondansetron HCl (Zofran) 4 mg Q6H PRN IVP Nausea & Vomiting 01/14/20 14:30 02/13/20 14:29 Polyethylene Glycol (Miralax) 17 gm DAILYPRN PRN ORAL Constipation 01/14/20 14:30 02/13/20 14:29 Potassium Chloride (K-Dur) 20 meq DAILY ORAL 01/18/20 09:00 04/17/20 08:59 Potassium Chloride (K-Dur) 40 meq TWICE A DAY ORAL 01/17/20 09:00 01/17/20 23:00 01/17/20 10:30 Spironolactone (Aldactone) 25 mg DAILY ORAL 01/17/20 09:00 02/16/20 08:59 01/17/20 10:33 Zinc Sulfate (Zinc Sulfate) 220 mg DAILY ORAL 01/17/20 09:00 01/27/20 08:59 01/17/20 10:32 Pawan Holland MD Jan 17, 2020 10:51
--- NOTE | 2020-01-17 11:19 | Cardiac Electrophysiology PN ---
Assessment/Plan Assessment/Plan 1. Shortness of breath and elevated BNP of more than 6000 due to CHF and EF 25%. Ruled out for [place]. On Lasix 40 mg IV bid, Coreg 3.125 bid and Lisinopril 10 daily Needs cardiac cath for evaluation after PNA is cleared. 2. NSVT. Due to CMP 3. LBBB 4. Pneumonia. On ceftriaxone, azithromycin and the COVID-19 test is negative 5. Anemia, hemoglobin 8.5. 6. Diabetes. RASHIDA RN Subjective Subjective Had NSVT yesterday and again 6 beats today. Feeling better.Has frequent PVCs. Off isolation as Covid is negative Objective Last 24 Hour Vital Signs Date Time Temp Pulse Resp B/P (MAP) Pulse Ox O2 Delivery O2 Flow Rate FiO2 01/17/20 10:34 120/69 01/17/20 10:32 75 120/69 01/17/20 08:56 Nasal Cannula 1.0 01/17/20 08:30 97.6 75 20 120/69 (86) 98 01/17/20 04:35 62 01/17/20 04:00 98.1 68 20 120/64 (82) 92 01/17/20 00:48 65 01/17/20 00:00 98.2 66 20 105/52 (69) 97 01/16/20 23:44 98.1 01/16/20 22:13 82 01/16/20 21:54 98.1 87 22 128/74 (92) 94 01/16/20 21:52 Nasal Cannula 1.0 01/16/20 21:40 78 118/74 01/16/20 20:00 98.1 84 18 127/74 (91) 95 01/16/20 16:00 86 01/16/20 16:00 96.8 60 19 124/78 (93) 98 01/16/20 12:00 92 01/16/20 12:00 96.7 70 20 120/61 (80) 96 Intake and Output 01/16/20 01/17/20 19:00 07:00 Intake Total 280 ml Output Total 1200 ml 1000 ml Balance -920 ml -1000 ml Intake Oral 280 ml Output Urine Total 1200 ml 1000 ml # Voids 3 Laboratory Tests Test 01/17/20 05:59 White Blood Count 7.5 K/UL (4.8-10.8) Red Blood Count 3.42 M/UL (4.20-5.40) L Hemoglobin 8.8 G/DL (12.0-16.0) L Hematocrit 28.4 % (37.0-47.0) L Mean Corpuscular Volume 83 FL (80-99) Mean Corpuscular Hemoglobin 25.7 PG (27.0-31.0) L Mean Corpuscular Hemoglobin Concent 30.9 G/DL (32.0-36.0) L Red Cell Distribution Width 19.4 % (11.6-14.8) H Platelet Count 419 K/UL (150-450) Mean Platelet Volume 5.3 FL (6.5-10.1) L Neutrophils (%) (Auto) 55.6 % (45.0-75.0) Lymphocytes (%) (Auto) 18.9 % (20.0-45.0) L Monocytes (%) (Auto) 12.1 % (1.0-10.0) H Eosinophils (%) (Auto) 11.8 % (0.0-3.0) H Basophils (%) (Auto) 1.6 % (0.0-2.0) Sodium Level 144 MMOL/L (136-145) Potassium Level 2.5 MMOL/L (3.5-5.1) *L Chloride Level 101 MMOL/L (98-107) Carbon Dioxide Level 38 MMOL/L (21-32) H Anion Gap 5 mmol/L (5-15) Blood Urea Nitrogen 8 mg/dL (7-18) Creatinine 0.7 MG/DL (0.55-1.30) Estimat Glomerular Filtration Rate > 60 mL/min (>60) Glucose Level 101 MG/DL (74-106) Calcium Level 8.1 MG/DL (8.5-10.1) L Magnesium Level 1.9 MG/DL (1.8-2.4) Pro-B-Type Natriuretic Peptide 2767 pg/mL (0-125) H Microbiology Date/Time Source Procedure Growth Status 01/14/20 17:38 Blood Blood Culture - Preliminary NO GROWTH AFTER 48 HOURS Resulted 01/14/20 17:23 Blood Blood Culture - Preliminary NO GROWTH AFTER 48 HOURS Resulted 01/14/20 11:25 Nasal Nares MRSA Culture - Final NO METHICILLIN RESISTANT STAPH AUREUS... Complete 01/14/20 11:25 Nasopharynx Coronavirus COVID-19 PCR (PATRIC) - Final Complete 01/14/20 16:20 Urine,Clean Catch Urine Culture - Final Enterococcus Faecalis Complete 01/14/20 11:25 Rectum VRE Culture - Final Enterococcus Faecium - Vre Enterococcus Faecalis - Vre Complete Objective HEAD AND NECK: No JVD. LUNGS: Clear. CARDIOVASCULAR: Regular S1 and S2 with no gallop. ABDOMEN: Soft. EXTREMITIES: No pitting edema. Diony Reeves MD Jan 17, 2020 11:19
[2020-01-17 12:00] VITALS: BP 128/71
[2020-01-17 14:14] LABS: ANION GAP 7 mmol/L (5-15); BLOOD UREA NITROGEN 8 mg/dL (7-18); CARBON DIOXIDE 38 MMOL/L (21-32); CHLORIDE 99 MMOL/L (98-107); CREATININE 0.8 MG/DL (0.55-1.30); POTASSIUM 2.9 MMOL/L (3.5-5.1); SODIUM 144 MMOL/L (136-145)
--- NOTE | 2020-01-17 14:35 | Surgery Progress Note ---
Surgery Progress Note Subjective Additional Comments no acute events comfortable stable labs noted Objective Last 24 Hour Vital Signs Date Time Temp Pulse Resp B/P (MAP) Pulse Ox O2 Delivery O2 Flow Rate FiO2 01/17/20 10:34 120/69 01/17/20 10:32 75 120/69 01/17/20 08:56 Nasal Cannula 1.0 01/17/20 08:30 97.6 75 20 120/69 (86) 98 01/17/20 04:35 62 01/17/20 04:00 98.1 68 20 120/64 (82) 92 01/17/20 00:48 65 01/17/20 00:00 98.2 66 20 105/52 (69) 97 01/16/20 23:44 98.1 01/16/20 22:13 82 01/16/20 21:54 98.1 87 22 128/74 (92) 94 01/16/20 21:52 Nasal Cannula 1.0 01/16/20 21:40 78 118/74 01/16/20 20:00 98.1 84 18 127/74 (91) 95 01/16/20 16:00 86 01/16/20 16:00 96.8 60 19 124/78 (93) 98 I&O Intake and Output 01/16/20 01/17/20 19:00 07:00 Intake Total 280 ml Output Total 1200 ml 1000 ml Balance -920 ml -1000 ml Intake Oral 280 ml Output Urine Total 1200 ml 1000 ml # Voids 3 Dressing: other Wound: other Drains: other Cardiovascular: RSR Respiratory: decreased breath sounds Abdomen: soft, non-tender, present bowel sounds Extremities: no tenderness, no cyanosis Laboratory Tests Test 01/17/20 05:59 01/17/20 13:32 White Blood Count 7.5 K/UL (4.8-10.8) Red Blood Count 3.42 M/UL (4.20-5.40) L Hemoglobin 8.8 G/DL (12.0-16.0) L Hematocrit 28.4 % (37.0-47.0) L Mean Corpuscular Volume 83 FL (80-99) Mean Corpuscular Hemoglobin 25.7 PG (27.0-31.0) L Mean Corpuscular Hemoglobin Concent 30.9 G/DL (32.0-36.0) L Red Cell Distribution Width 19.4 % (11.6-14.8) H Platelet Count 419 K/UL (150-450) Mean Platelet Volume 5.3 FL (6.5-10.1) L Neutrophils (%) (Auto) 55.6 % (45.0-75.0) Lymphocytes (%) (Auto) 18.9 % (20.0-45.0) L Monocytes (%) (Auto) 12.1 % (1.0-10.0) H Eosinophils (%) (Auto) 11.8 % (0.0-3.0) H Basophils (%) (Auto) 1.6 % (0.0-2.0) Sodium Level 144 MMOL/L (136-145) 144 MMOL/L (136-145) Potassium Level 2.5 MMOL/L (3.5-5.1) *L 2.9 MMOL/L (3.5-5.1) L Chloride Level 101 MMOL/L (98-107) 99 MMOL/L (98-107) Carbon Dioxide Level 38 MMOL/L (21-32) H 38 MMOL/L (21-32) H Anion Gap 5 mmol/L (5-15) 7 mmol/L (5-15) Blood Urea Nitrogen 8 mg/dL (7-18) 8 mg/dL (7-18) Creatinine 0.7 MG/DL (0.55-1.30) 0.8 MG/DL (0.55-1.30) Estimat Glomerular Filtration Rate > 60 mL/min (>60) > 60 mL/min (>60) Glucose Level 101 MG/DL (74-106) 162 MG/DL (74-106) H Calcium Level 8.1 MG/DL (8.5-10.1) L 9.0 MG/DL (8.5-10.1) Magnesium Level 1.9 MG/DL (1.8-2.4) Pro-B-Type Natriuretic Peptide 2767 pg/mL (0-125) H Plan Problems: (1) Suspected COVID-19 virus infection (2) Weakness (3) Pneumonia Assessment & Plan: Lungs/pleura: Bibasilar opacities may represent atelectasis versus pneumonia. Small bilateral pleural effusions and/or pleural thickening. Background of chronic interstitial lung changes and probable emphysema. Heart/mediastinum: Enlargement of the cardiac silhouette. Atherosclerotic calcifications of the aorta. Soft tissues: Unremarkable. Bones: No acute fracture. Generative changes of the acromioclavicular joints. Upper abdomen: Normal. IMPRESSION: 1. Bibasilar opacities may represent atelectasis versus pneumonia. Small bilateral pleural effusions and/or pleural thickening. 2. Background of chronic interstitial lung changes and probable emphysema. (4) CHF (congestive heart failure) (5) Abdominal pain Assessment & Plan: currently no abdominal pain states had prior but more like reflux rx given will monitor DAILY ESTIMATED NEEDS: Needs based on Cardiac, wounds/ 60kg abw 25-30 kcals/kg 4235-2895 total kcals 1.25-1.5 g protein/kg 75-90 g total protein 1500ml fluid restriction per MD mL/kg . total fluid mLs NUTRITION DIAGNOSIS: * Increased prot intake needs R/T wound healing as evidenced by admitted w/ multiple wounds including open wounds @ Lt ankle and Lt buttock per photos, pending evaluation. * Altered nutrition related lab values R/T CHF as evidenced by elev BNP ([phone]), on Lasix and 1.5 L fluid restriction. CURRENT DIET:CARDIAC PO DIET RECOMMENDATIONS: LOW NA/ texture as tolerated ADDITIONAL RECOMMENDATIONS: * Daily calibrated bedscale wt : CHF dx * Wound healing: add MVI x 1, Vit C 500mg QD, ZnSO4 220mg QD x 10 days NEHEMIAS BID as tolerated/ f/up w/ WC eval * Fluid restriction per MD * Monitor lytes closely w/ Lasix, replete as needed (6) Lower extremity ulceration Assessment & Plan: right leg medial aspect venous stasis ulcer noted 4cm x 3cm with surrounding tissue raised edges. no active drainage, no signs of active infection venous incompetence noted patients has had for some time but without significant improvement unknown prior trauma tender on palpation with some granulation tissue. no necrotic tissue or eschar also with sacral wound wash wound daily with normal saline, apply therahoney and foam dressing keep legs elevated turn q2h off load pressure will follow with recs thank you Gianluca Cummins Jan 17, 2020 14:34
[2020-01-17 16:00] VITALS: BP 124/84
--- NOTE | 2020-01-17 16:37 | NUR ---
PT Note PT phylicia completed, treatment initiated. Patient has muscle weakness and decreased balance, requiring extensive assist in mobility and gait. Patient needs PT to increase her muscle strength and balance to improve her functional mobility and gait. Addendum: 01/17/20 at 1638 by KATH DOS SANTOS PT Amended: Links added.
[2020-01-17 20:00] VITALS: BP 128/80
--- NOTE | 2020-01-17 20:00 | NUR ---
NURSE NOTES: LEFT MESSAGE FOR KAYLYN AT [phone] TO GET INFORMATION REGARDING LATEST HOSPITALIZATION. AWAITING CALL BACK.
--- NOTE | 2020-01-17 20:15 | NUR ---
HAND-OFF: Report given to EMMY/RN PT IN stable condition, endorsed to RN that we need to get medical records from pt last visit to previous hospital. Day nurse to contact [facility] for better medical history and last previous hospital admittion.
--- NOTE | 2020-01-17 20:25 | NUR ---
NURSE NOTES: RECEIVED REPORT FROM CHRISTINA MCALLISTER. PATIENT AWAKE IN BED, AAOX2-3, VERBALLY RESPONSIVE AND ABLE TO MAKE NEEDS KNOWN- PRIMARILY LAO-SPEAKING. NO COMPLAINTS OF PAIN OR DISCOMFORT AT THIS TIME. BREATHING IS EVEN AND UNLABORED ON 2LPM VIA NC, NO S/SX OF DISTRESS AT THIS TIME. PATIENT IS BEDBOUND, BUT ABLE TO ASSIST IN REPOSITIONING. AYERS CATHETER DRAINING WELL TO GRAVITY. IV SITE ON LFA 22G ASYMPTOMATIC, PATENT AND INTACT, SALINE-LOCKED. BED LOCKED AND IN LOWEST POSITION, WITH SIDERAILS UP X 3. CALL LIGHT WITHIN REACH. CONTACT PRECAUTIONS IMPLEMENTED. WILL CONTINUE TO MONITOR FOR ANY CHANGES.
--- NOTE | 2020-01-17 23:10 | Infectious Diseases Prog Note ---
Assessment/Plan Assessment/Plan Full consult dictated; A) 1) possible covid-19 virus infection/pna 2) ? CAP 3) enterococcus uti 4) vre colonization P) 1) ceftriaxone and doxycycline 2) f/u on covid-19 testing, chest x-ray, labs 3) d/w Dr. Killian 4) thank you Subjective Allergies: Coded Allergies: No Known Allergies (Unverified , 01/14/20) Objective Vital Signs Last 24 Hour Vital Signs Date Time Temp Pulse Resp B/P (MAP) Pulse Ox O2 Delivery O2 Flow Rate FiO2 01/17/20 20:44 72 128/80 01/17/20 16:00 96.8 76 18 124/84 (97) 98 01/17/20 15:52 104 01/17/20 15:44 76 01/17/20 15:09 128 01/17/20 12:00 96.8 86 19 128/71 (90) 96 01/17/20 12:00 74 01/17/20 10:34 120/69 01/17/20 10:32 75 120/69 01/17/20 08:56 Nasal Cannula 1.0 01/17/20 08:30 97.6 75 20 120/69 (86) 98 01/17/20 08:00 75 01/17/20 04:35 62 01/17/20 04:00 98.1 68 20 120/64 (82) 92 01/17/20 00:48 65 01/17/20 00:00 98.2 66 20 105/52 (69) 97 01/16/20 23:44 98.1 Height (Feet): 5 Height (Inches): 5.00 Weight (Pounds): 141 Laboratory Tests Test 01/17/20 05:59 01/17/20 13:32 White Blood Count 7.5 K/UL (4.8-10.8) Red Blood Count 3.42 M/UL (4.20-5.40) L Hemoglobin 8.8 G/DL (12.0-16.0) L Hematocrit 28.4 % (37.0-47.0) L Mean Corpuscular Volume 83 FL (80-99) Mean Corpuscular Hemoglobin 25.7 PG (27.0-31.0) L Mean Corpuscular Hemoglobin Concent 30.9 G/DL (32.0-36.0) L Red Cell Distribution Width 19.4 % (11.6-14.8) H Platelet Count 419 K/UL (150-450) Mean Platelet Volume 5.3 FL (6.5-10.1) L Neutrophils (%) (Auto) 55.6 % (45.0-75.0) Lymphocytes (%) (Auto) 18.9 % (20.0-45.0) L Monocytes (%) (Auto) 12.1 % (1.0-10.0) H Eosinophils (%) (Auto) 11.8 % (0.0-3.0) H Basophils (%) (Auto) 1.6 % (0.0-2.0) Sodium Level 144 MMOL/L (136-145) 144 MMOL/L (136-145) Potassium Level 2.5 MMOL/L (3.5-5.1) *L 2.9 MMOL/L (3.5-5.1) L Chloride Level 101 MMOL/L (98-107) 99 MMOL/L (98-107) Carbon Dioxide Level 38 MMOL/L (21-32) H 38 MMOL/L (21-32) H Anion Gap 5 mmol/L (5-15) 7 mmol/L (5-15) Blood Urea Nitrogen 8 mg/dL (7-18) 8 mg/dL (7-18) Creatinine 0.7 MG/DL (0.55-1.30) 0.8 MG/DL (0.55-1.30) Estimat Glomerular Filtration Rate > 60 mL/min (>60) > 60 mL/min (>60) Glucose Level 101 MG/DL (74-106) 162 MG/DL (74-106) H Calcium Level 8.1 MG/DL (8.5-10.1) L 9.0 MG/DL (8.5-10.1) Magnesium Level 1.9 MG/DL (1.8-2.4) Pro-B-Type Natriuretic Peptide 2767 pg/mL (0-125) H Current Medications Medications (Trade) Dose Ordered Sig/Yolanda Route PRN Reason Start Time Stop Time Status Last Admin Dose Admin Acetaminophen (Tylenol) 650 mg Q4H PRN ORAL Mild Pain (Pain Scale 1-3) 01/14/20 14:30 02/13/20 14:29 01/17/20 18:31 Acetaminophen (Tylenol) 650 mg Q4H PRN ORAL FEVER 01/14/20 14:30 02/13/20 14:29 Acetaminophen (Tylenol) 650 mg Q4H PRN RECTAL FEVER 01/14/20 14:30 02/13/20 14:29 Acetaminophen (Tylenol) 650 mg Q4H PRN RECTAL Mild Pain (Pain Scale 1-3) 01/14/20 14:30 02/13/20 14:29 Albuterol/ Ipratropium (Albuterol/ Ipratropium) 3 ml Q6HRT PRN HHN SOB/Wheeze 01/15/20 15:00 01/20/20 14:59 Ascorbic Acid (Vitamin C) 500 mg DAILY ORAL 01/17/20 09:00 02/16/20 08:59 01/17/20 10:33 Aspirin (ASA) 162 mg DAILY ORAL 01/15/20 09:00 02/29/20 08:59 01/17/20 10:34 Carvedilol (Coreg) 3.125 mg EVERY 12 HOURS ORAL 01/16/20 21:00 02/15/20 20:59 01/17/20 20:44 Ceftriaxone Sodium 1 gm/ Sodium Chloride 55 ml @ 110 mls/hr DAILY IVPB 01/15/20 09:00 01/22/20 08:59 01/17/20 10:27 Diphenhydramine HCl (Benadryl) 25 mg Q6H PRN ORAL Itching/Pruritis/insomnia 01/14/20 14:30 02/13/20 14:29 Docusate Sodium (Colace) 100 mg EVERY 12 HOURS ORAL 01/14/20 21:00 02/13/20 20:59 01/17/20 20:23 Enoxaparin Sodium (Lovenox) 40 mg DAILY SUBQ 01/15/20 09:00 04/14/20 08:59 01/17/20 10:29 Famotidine (Pepcid) 20 mg Q12H PRN ORAL gerd 01/14/20 14:30 04/13/20 14:29 Furosemide (Lasix) 40 mg BID IV 01/14/20 18:00 02/13/20 17:59 01/17/20 18:00 Lisinopril (ZestriL) 10 mg DAILY ORAL 01/17/20 09:00 02/16/20 08:59 01/17/20 10:34 Morphine Sulfate (Morphine Sulfate) 2 mg Q4H PRN IVP Moderate Pain (Pain Scale 4-6) 01/14/20 14:30 01/21/20 14:29 01/16/20 23:14 Morphine Sulfate (Morphine Sulfate) 4 mg Q4H PRN IVP Severe Pain (Pain Scale 7-10) 01/14/20 14:30 01/21/20 14:29 Multivitamins (Multivitamins) 1 tab DAILY ORAL 01/17/20 09:00 02/16/20 08:59 01/17/20 10:34 Nitroglycerin (Ntg) 0.4 mg Q5M PRN SL Prn Chest Pain 01/14/20 14:30 02/13/20 14:29 Ondansetron HCl (Zofran) 4 mg Q6H PRN IVP Nausea & Vomiting 01/14/20 14:30 02/13/20 14:29 Polyethylene Glycol (Miralax) 17 gm DAILYPRN PRN ORAL Constipation 01/14/20 14:30 02/13/20 14:29 Potassium Chloride (K-Dur) 20 meq DAILY ORAL 01/18/20 09:00 04/17/20 08:59 Spironolactone (Aldactone) 25 mg DAILY ORAL 01/17/20 09:00 02/16/20 08:59 01/17/20 10:33 Zinc Sulfate (Zinc Sulfate) 220 mg DAILY ORAL 01/17/20 09:00 01/27/20 08:59 01/17/20 10:32 Leroy Maurice MD Jan 17, 2020 23:10
[2020-01-18] VITALS: BP 103/47
[2020-01-18 04:00] VITALS: BP 116/60
--- NOTE | 2020-01-18 05:14 | Consultation ---
DATE OF CONSULTATION: 01/17/2020 INFECTIOUS DISEASES CONSULTATION CONSULTING PHYSICIAN: Leroy Maurice MD. ATTENDING PHYSICIAN: Oswald aFir MD REFERRING PHYSICIAN: Nohemy Killian MD. REASON FOR CONSULTATION: Possible COVID-19 virus infection, possible community-acquired pneumonia, Enterococcus UTI. CHIEF COMPLAINT: The patient's chief complaint into the hospital is weakness. HISTORY OF PRESENT ILLNESS: This is a 74-year-old female comes into [facility] with weakness. The patient was noted on chest x-ray to have bilateral opacities. It is unclear if this is CHF, atelectasis, versus pneumonia. She also had effusions. The patient was put in isolation for COVID-19 virus infection and COVID-19 virus PCR testing is pending. The patient also has Enterococcus UTI, sensitive to Macrobid. She is colonized with VRE. Infectious Diseases consultation was requested for antibiotic management. The patient had possible arrhythmias with azithromycin. The patient was placed on Rocephin and doxycycline in addition to Macrobid. MAR was noted. Orders were noted. Notes were reviewed. Case discussed with RN. Case discussed with Dr. Killian. The patient cannot add to this history. REVIEW OF SYSTEMS: The patient has no fevers. She has generalized fatigue. No focal weakness. She is responsive. She has multiple wounds that I have reviewed.HEAD AND NECK: No head pain or neck pain. CARDIAC: No chest pain. GASTROINTESTINAL: No nausea, vomiting, or diarrhea. GENITOURINARY: She does have a Sanchez. PULMONARY: Mild congestion. No significant secretions or hemoptysis. SKIN: No rash or itching. She has multiple wounds that I reviewed. EXTREMITIES: No pain. NEUROLOGIC: No seizure activity. Generalized fatigue. No obvious focal weakness. No fevers. PAST MEDICAL HISTORY: The patient has a past medical history of the following: The patient has a past medical history of CHF, diabetes mellitus type 2, history of hypertension, history of wounds, COPD, emphysema, hypoxia, decompensated CHF, diabetes, hypertension, history of PVCs, venous stasis ulcer. ALLERGIES: No known drug allergies. No antibiotic allergies. SOCIAL HISTORY: Negative for smoking, alcohol, or drug abuse. FAMILY HISTORY: Noncontributory. Negative for exposure to tuberculosis or cancer. MEDICATIONS: Upon reviewing the MAR, she is on following medications. She is on potassium chloride, ascorbic acid, multivitamin, zinc sulfate, lisinopril, spironolactone, carvedilol, albuterol, aspirin, enoxaparin, Rocephin, doxycycline, Macrobid, nitroglycerin, furosemide, acetaminophen. Outside medications noted and reconciliated. PHYSICAL EXAMINATION: VITAL SIGNS: Temperature 96.8, pulse rate 76, respiratory rate 18, blood pressure 124/84, saturation 98%. GENERAL: Alert and responsive, no acute distress. HEAD AND NECK: Oral exam, no thrush. Eye exam, no icterus. Normocephalic. NECK: Supple. No JVD. HEART: Regular. No gallop or murmur. No friction rub. ABDOMEN: Soft. Positive bowel sounds. Nontender. No organomegaly. LUNGS: Few bilateral rhonchi and crackles. Possible rales at the bases. SKIN: No rash. Multiple wounds reviewed, not acutely infected. MUSCULOSKELETAL: No effusions. Legs are without cellulitis. PERIPHERAL: Vascular: No cyanosis or gangrene. GENITOURINARY: She has Sanchez. Urine is slightly cloudy. LINE SITES: Without phlebitis. NEUROLOGIC: General weakness and responsive. LABORATORY DATA: White count is 7.5, hemoglobin is 8.8. Creatinine is 0.8, potassium 2.5. UA had 2+ leukocyte esterase. IMAGING STUDIES: Chest x-ray showed bibasilar opacities, atelectasis versus infiltrate, questionable CHF and effusions. Cultures, blood cultures are negative. Urine culture with Enterococcus. She is colonized with VRE. Urine culture with enterococcus, sensitive to Macrobid and vancomycin. ASSESSMENT AND PLAN: 1. The patient has positive COVID-19 virus infection and pneumonia, rule out community-acquired pneumonia. The patient has Enterococcus UTI, colonized with VRE. At this time because she has PVCs, we will discontinue azithromycin and place the patient on Rocephin and doxycycline to cover community-acquired pneumonia and await COVID-19 virus infection testing. There is no indication for hydroxychloroquine at this time. Continue Rocephin and doxycycline. Check followup labs and chest x-ray. Continue COVID-19 virus isolation, pending testing with PCR. 2. Enterococcus UTI. Macrobid for 5 to 7 days has been started. 3. VRE colonization. 4. CHF. 5. Diabetes. 6. Hypertension. 7. Blood sugar and blood pressure treatment per primary care team for diabetes and hypertension. 8. PVCs. 9. Hypokalemia. 10. Venous stasis ulcers. Continue wound care protocol . 11. No known drug allergies. 12. Social history is negative. 13. Family history is noncontributory. 14. MAR was noted. 15. Case discussed with RN. 16. Case discussed with Dr. Killian. 17. Orders were noted and entered. 18. Continue treatment per primary consultants. Leroy Maurice M.D. DR: Chanell JOB#: [id number] CC:
--- NOTE | 2020-01-18 07:20 | NUR ---
HAND-OFF: Report given to CHRISTINA MAYEN. INFORMED HER KAYLYN, GRANDDAUGHTER, WAS CALLED REGARDING INFORMATION ON LATEST HOSPITALIZATION. PLAN OF CARE ENDORSED.
--- NOTE | 2020-01-18 07:32 | General Progress Note ---
Assessment/Plan Assessment/Plan: 74 yr F w/ Hx HTN, CHF, DM2 admitted via ED with SOB c/w CHF exacerbation w/ suspected underlying PNA undergoing COVID 19 rule out. #HCAP/PNA #COPD/Emphysema #Acute hypoxic respiratory failure (suspect pts sats < 88% on RA should be taken off O2 w/ pulm infiltrates and CHF) #Enterococcus UTI - cont. in pt medical care - COVID 19 PCR -> Negative - No need to retest COVID on pt per /HI - d/c COVID 19 isolation precautions for now - Blood Cx NGTD - Sputum Cx normal erickson - Supplemental O2 as needed - Nebs prn for SOB/Wheeze - Pulm following - cont. Azithromycin (01/13 - 01/16), stopped due to PVCS, Ceftriaxone (01/13 - ), Doxycycline (01/16 - ), macrobid #2/ - ID following, recs appreciated #Acute decompensated CHF #Acute on Chronic systolic heart failure #NSVT #PVCs #elevated BNP - campus monitor - BNP likely 2/2 CHF - 1.5 L fluid restriction, cardiac diet - strict i/o's and daily weights - workup and abx as above - TTE EF 25-30% - cont. Lasix 40 IV BID, goal neg 1L per day - cardiology consult, pt will need cardiac cath - d/w Cardio, pt will need angiogram and possible defibrillator - obtain records from [facility] - call made to grand daughter, Yanira Holland, , no answer, left voice mail #Hypokalemia - replace - pt on lasix for acute HF - potassium 20 mEq q/daily while on lasix #Venous Stasis Ulcers -Wound care following, recs appreciated Dispo: pt is from [facility], for dispo planning I spent 37 min on this case and 22 min was dedicated to counseling and care coordination including discussion including communication w/CHRISTINA, NERISSA. Spent an additional 32 mins discussing case w/mass spectroscopist, Dr Leandro emmanuel tele findings and ID Dr. Maurice regarding medications. Time of this note may not reflect the time of the clinical encounter. Subjective Allergies: Coded Allergies: No Known Allergies (Unverified , 01/14/20) Subjective F/u for acute CHF exacerbation. Pt w/ VT tach on tele, cont. to have frequent PVCs. Pt states she is feeling well, however notes she was at [facility] in the past. Objective Last 24 Hour Vital Signs Date Time Temp Pulse Resp B/P (MAP) Pulse Ox O2 Delivery O2 Flow Rate FiO2 01/18/20 04:00 69 01/18/20 04:00 98.1 65 18 116/60 (78) 97 01/18/20 00:00 73 01/18/20 00:00 98.2 68 18 103/47 (65) 96 01/17/20 21:00 Nasal Cannula 2.0 01/17/20 20:44 72 128/80 01/17/20 20:00 98.2 80 18 128/80 (96) 96 01/17/20 20:00 86 01/17/20 16:00 96.8 76 18 124/84 (97) 98 01/17/20 15:52 104 01/17/20 15:44 76 01/17/20 15:09 128 01/17/20 12:00 96.8 86 19 128/71 (90) 96 01/17/20 12:00 74 01/17/20 10:34 120/69 01/17/20 10:32 75 120/69 01/17/20 08:56 Nasal Cannula 1.0 01/17/20 08:30 97.6 75 20 120/69 (86) 98 01/17/20 08:00 75 Intake and Output 01/17/20 01/18/20 19:00 07:00 Intake Total 640 ml Output Total 820 ml 800 ml Balance -180 ml -800 ml Intake Oral 640 ml Output Urine Total 820 ml 800 ml # Bowel Movements 1 Laboratory Tests 01/17/20 13:32: Sodium Level 144, Potassium Level 2.9L, Chloride Level 99, Carbon Dioxide Level 38H, Anion Gap 7, Blood Urea Nitrogen 8, Creatinine 0.8, Estimat Glomerular Filtration Rate > 60, Glucose Level 162H, Calcium Level 9.0 Height (Feet): 5 Height (Inches): 5.00 Weight (Pounds): 152 Objective General Appearance: WD/WN, no apparent distress, sitting up in bed HEENT: NCAT, EOMI Neck: supple Respiratory/Chest: lungs clear, normal breath sounds, no respiratory distress, no accessory muscle use Cardiovascular/Chest: RRR, no gallop/murmur, JVD Abdomen: normal bowel sounds, non tender, soft Extremities: normal inspection, no edema appreciated Hannah Killian M.D. Jan 18, 2020 07:32
[2020-01-18 08:00] VITALS: BP 122/63
--- NOTE | 2020-01-18 08:00 | NUR ---
NURSE NOTES: Received pt from CHRISTINA Shen. Pt awake, A/O x4. Condition stable. SL on left AC 22 G. F/C draining yellow urine. Bed low, call light within reach. Will continue plan of care.
[2020-01-18] MEDS: Enoxaparin 40mg Inj SUBQ SCH (09:00)
[2020-01-18 09:02] LABS: BASOPHILS % (AUTO) 1.4 % (0.0-2.0); HEMATOCRIT 29.8 % (37.0-47.0); HEMOGLOBIN 9.1 G/DL (12.0-16.0); LYMPHOCYTES % (AUTO) 26.2 % (20.0-45.0); MEAN CORPUSCULAR VOLUME 83 FL (80-99); MONOCYTES % (AUTO) 10.8 % (1.0-10.0); NEUTROPHILS % (AUTO) 48.6 % (45.0-75.0); PLATELET COUNT 420 K/UL (150-450); RED BLOOD COUNT 3.58 M/UL (4.20-5.40); RED CELL DISTRIBUTION WIDTH 19.8 % (11.6-14.8); WHITE BLOOD COUNT 7.9 K/UL (4.8-10.8)
[2020-01-18 09:18] LABS: ANION GAP 3 mmol/L (5-15); BLOOD UREA NITROGEN 6 mg/dL (7-18); CALCIUM 8.8 MG/DL (8.5-10.1); CARBON DIOXIDE 37 MMOL/L (21-32); CHLORIDE 103 MMOL/L (98-107); CREATININE 0.6 MG/DL (0.55-1.30); POTASSIUM 3.2 MMOL/L (3.5-5.1); SODIUM 143 MMOL/L (136-145)
[2020-01-18] MEDS: Aspirin Baby 81mg ORAL SCH (10:10)
[2020-01-18] MEDS: Docusate 100mg cap ORAL SCH ×2 (10:10→21:45)
[2020-01-18] MEDS: Spironolactone 25mg tab ORAL SCH (10:11)
[2020-01-18] MEDS: Ascorbic Acid 500mg tab ORAL SCH (10:11)
[2020-01-18] MEDS: Lisinopril 10mg tab ORAL SCH (10:11)
[2020-01-18] MEDS: cefTRIAXone 1 GM in NS 55 ML IVPB SCH (10:13)
--- NOTE | 2020-01-18 10:29 | Pulmonology Progress Note ---
Assessment/Plan Assessment/Plan IMPRESSION: 1. Decompensated congestive heart failure. 2. Hypertension. 3. Diabetes mellitus. 4. Rule out COVID-19. DISCUSSION: Initial COVID-19 testing negative. I will follow as supervisor calibration. Currently, the patient is saturating well on low-flow oxygen. Continue home medications. Continue Lasix. Pawan Holland M.D. Subjective Interval Events: COVID 19 pcr x 1 negative Constitutional: Reports: no symptoms HEENT: Repors: no symptoms Respiratory: Reports: shortness of breath Cardiovascular: Reports: no symptoms Gastrointestinal/Abdominal: Reports: no symptoms Genitourinary: Reports: no symptoms Allergies: Coded Allergies: No Known Allergies (Unverified , 01/14/20) Objective Last 24 Hour Vital Signs Date Time Temp Pulse Resp B/P (MAP) Pulse Ox O2 Delivery O2 Flow Rate FiO2 01/18/20 08:00 98.3 68 18 122/63 (82) 98 01/18/20 04:00 69 01/18/20 04:00 98.1 65 18 116/60 (78) 97 01/18/20 00:00 73 01/18/20 00:00 98.2 68 18 103/47 (65) 96 01/17/20 21:00 Nasal Cannula 2.0 01/17/20 20:44 72 128/80 01/17/20 20:00 98.2 80 18 128/80 (96) 96 01/17/20 20:00 86 01/17/20 16:00 96.8 76 18 124/84 (97) 98 01/17/20 15:52 104 01/17/20 15:44 76 01/17/20 15:09 128 01/17/20 12:00 96.8 86 19 128/71 (90) 96 01/17/20 12:00 74 01/17/20 10:34 120/69 01/17/20 10:32 75 120/69 Intake and Output 01/17/20 01/18/20 19:00 07:00 Intake Total 640 ml Output Total 820 ml 800 ml Balance -180 ml -800 ml Intake Oral 640 ml Output Urine Total 820 ml 800 ml # Bowel Movements 1 General Appearance: no acute distress HEENT: normocephalic, mucous membranes moist, PERRL Respiratory/Chest: chest wall non-tender Cardiovascular: normal peripheral pulses Abdomen: normal bowel sounds Extremities: no cyanosis Neurologic/Psychiatric: alert Laboratory Tests 01/17/20 13:32: Sodium Level 144, Potassium Level 2.9L, Chloride Level 99, Carbon Dioxide Level 38H, Anion Gap 7, Blood Urea Nitrogen 8, Creatinine 0.8, Estimat Glomerular Filtration Rate > 60, Glucose Level 162H, Calcium Level 9.0 01/18/20 07:50: Sodium Level 143, Potassium Level 3.2L, Chloride Level 103, Carbon Dioxide Level 37H, Anion Gap 3L, Blood Urea Nitrogen 6L, Creatinine 0.6, Estimat Glomerular Filtration Rate > 60, Glucose Level 101, Calcium Level 8.8, White Blood Count 7.9, Red Blood Count 3.58L, Hemoglobin 9.1L, Hematocrit 29.8L, Mean Corpuscular Volume 83, Mean Corpuscular Hemoglobin 25.5L, Mean Corpuscular Hemoglobin Concent 30.6L, Red Cell Distribution Width 19.8H, Platelet Count 420 , Mean Platelet Volume 5.2L, Neutrophils (%) (Auto) 48.6, Lymphocytes (%) (Auto ) 26.2, Monocytes (%) (Auto) 10.8H, Eosinophils (%) (Auto) 13.0H, Basophils (%) (Auto) 1.4, Pro-B-Type Natriuretic Peptide 2108H Current Medications Medications (Trade) Dose Ordered Sig/Yolanda Route PRN Reason Start Time Stop Time Status Last Admin Dose Admin Acetaminophen (Tylenol) 650 mg Q4H PRN ORAL Mild Pain (Pain Scale 1-3) 01/14/20 14:30 02/13/20 14:29 01/17/20 18:31 Acetaminophen (Tylenol) 650 mg Q4H PRN ORAL FEVER 01/14/20 14:30 02/13/20 14:29 Acetaminophen (Tylenol) 650 mg Q4H PRN RECTAL FEVER 01/14/20 14:30 02/13/20 14:29 Acetaminophen (Tylenol) 650 mg Q4H PRN RECTAL Mild Pain (Pain Scale 1-3) 01/14/20 14:30 02/13/20 14:29 Albuterol/ Ipratropium (Albuterol/ Ipratropium) 3 ml Q6HRT PRN HHN SOB/Wheeze 01/15/20 15:00 01/20/20 14:59 Ascorbic Acid (Vitamin C) 500 mg DAILY ORAL 01/17/20 09:00 02/16/20 08:59 01/17/20 10:33 Aspirin (ASA) 162 mg DAILY ORAL 01/15/20 09:00 02/29/20 08:59 01/17/20 10:34 Carvedilol (Coreg) 3.125 mg EVERY 12 HOURS ORAL 01/16/20 21:00 02/15/20 20:59 01/17/20 20:44 Ceftriaxone Sodium 1 gm/ Sodium Chloride 55 ml @ 110 mls/hr DAILY IVPB 01/15/20 09:00 01/22/20 08:59 01/17/20 10:27 Diphenhydramine HCl (Benadryl) 25 mg Q6H PRN ORAL Itching/Pruritis/insomnia 01/14/20 14:30 02/13/20 14:29 Docusate Sodium (Colace) 100 mg EVERY 12 HOURS ORAL 01/14/20 21:00 02/13/20 20:59 01/17/20 20:23 Doxycycline Monohydrate (Doxycycline Monohydrate) 100 mg Q12HR@0800,2000 ORAL 01/18/20 08:00 01/25/20 07:59 Enoxaparin Sodium (Lovenox) 40 mg DAILY SUBQ 01/15/20 09:00 04/14/20 08:59 01/17/20 10:29 Famotidine (Pepcid) 20 mg Q12H PRN ORAL gerd 01/14/20 14:30 04/13/20 14:29 Furosemide (Lasix) 40 mg BID IV 01/14/20 18:00 02/13/20 17:59 01/17/20 18:00 Lisinopril (ZestriL) 10 mg DAILY ORAL 01/17/20 09:00 02/16/20 08:59 01/17/20 10:34 Morphine Sulfate (Morphine Sulfate) 2 mg Q4H PRN IVP Moderate Pain (Pain Scale 4-6) 01/14/20 14:30 01/21/20 14:29 01/16/20 23:14 Morphine Sulfate (Morphine Sulfate) 4 mg Q4H PRN IVP Severe Pain (Pain Scale 7-10) 01/14/20 14:30 01/21/20 14:29 Multivitamins (Multivitamins) 1 tab DAILY ORAL 01/17/20 09:00 02/16/20 08:59 01/17/20 10:34 Nitrofurantoin (Macrobid) 100 mg EVERY 12 HOURS ORAL 01/18/20 09:00 04/17/20 08:59 Nitroglycerin (Ntg) 0.4 mg Q5M PRN SL Prn Chest Pain 01/14/20 14:30 02/13/20 14:29 Ondansetron HCl (Zofran) 4 mg Q6H PRN IVP Nausea & Vomiting 01/14/20 14:30 02/13/20 14:29 Polyethylene Glycol (Miralax) 17 gm DAILYPRN PRN ORAL Constipation 01/14/20 14:30 02/13/20 14:29 Potassium Chloride (K-Dur) 20 meq DAILY ORAL 01/18/20 09:00 04/17/20 08:59 Potassium Chloride (K-Dur) 20 meq ONCE ORAL 01/18/20 10:15 01/18/20 11:15 Spironolactone (Aldactone) 25 mg DAILY ORAL 01/17/20 09:00 02/16/20 08:59 01/17/20 10:33 Zinc Sulfate (Zinc Sulfate) 220 mg DAILY@1200 ORAL 01/18/20 12:00 04/16/20 08:59 Pawan Holland MD Jan 18, 2020 10:29
[2020-01-18] MEDS: Doxycycline Monohydrate 100mg ORAL SCH ×2 (10:44→21:45)
--- NOTE | 2020-01-18 11:03 | Cardiac Electrophysiology PN ---
Assessment/Plan Assessment/Plan 1. CHF exacerbation with BNP of more than 6000 due to CHF and EF 25%. Ruled out for [place]. Decrease Lasix to 40 mg IV daily, Coreg 3.125 bid and Lisinopril 10 daily. Add Aldactone 25 daily Needs cardiac cath to R/O ischemic CMP after PNA is cleared. 2. Frequent long runs of NSVT. Due to CMP. Likely needs BIV ICD in view of LBBB. Will get records from [facility] 3. LBBB 4. Pneumonia. On ceftriaxone, azithromycin and the COVID-19 test is negative 5. Anemia, hemoglobin 8.5. 6. Diabetes. RASHIDA RN and Dr. Killian Left message for Grand daughter [phone] Transfer to [facility] after get records from [facility] Subjective Subjective Has frequent PVCs and nonsustained VTs of 10 and 17 beats at rate 180s. Off isolation as Covid is negative Objective Last 24 Hour Vital Signs Date Time Temp Pulse Resp B/P (MAP) Pulse Ox O2 Delivery O2 Flow Rate FiO2 01/18/20 10:11 122/63 01/18/20 10:11 68 122/63 01/18/20 08:00 98.3 68 18 122/63 (82) 98 01/18/20 04:00 69 01/18/20 04:00 98.1 65 18 116/60 (78) 97 01/18/20 00:00 73 01/18/20 00:00 98.2 68 18 103/47 (65) 96 01/17/20 21:00 Nasal Cannula 2.0 01/17/20 20:44 72 128/80 01/17/20 20:00 98.2 80 18 128/80 (96) 96 01/17/20 20:00 86 01/17/20 16:00 96.8 76 18 124/84 (97) 98 01/17/20 15:52 104 01/17/20 15:44 76 01/17/20 15:09 128 01/17/20 12:00 96.8 86 19 128/71 (90) 96 01/17/20 12:00 74 Intake and Output 01/17/20 01/18/20 19:00 07:00 Intake Total 640 ml Output Total 820 ml 800 ml Balance -180 ml -800 ml Intake Oral 640 ml Output Urine Total 820 ml 800 ml # Bowel Movements 1 Laboratory Tests Test 01/17/20 13:32 01/18/20 07:50 Sodium Level 144 MMOL/L (136-145) 143 MMOL/L (136-145) Potassium Level 2.9 MMOL/L (3.5-5.1) L 3.2 MMOL/L (3.5-5.1) L Chloride Level 99 MMOL/L (98-107) 103 MMOL/L (98-107) Carbon Dioxide Level 38 MMOL/L (21-32) H 37 MMOL/L (21-32) H Anion Gap 7 mmol/L (5-15) 3 mmol/L (5-15) L Blood Urea Nitrogen 8 mg/dL (7-18) 6 mg/dL (7-18) L Creatinine 0.8 MG/DL (0.55-1.30) 0.6 MG/DL (0.55-1.30) Estimat Glomerular Filtration Rate > 60 mL/min (>60) > 60 mL/min (>60) Glucose Level 162 MG/DL (74-106) H 101 MG/DL (74-106) Calcium Level 9.0 MG/DL (8.5-10.1) 8.8 MG/DL (8.5-10.1) White Blood Count 7.9 K/UL (4.8-10.8) Red Blood Count 3.58 M/UL (4.20-5.40) L Hemoglobin 9.1 G/DL (12.0-16.0) L Hematocrit 29.8 % (37.0-47.0) L Mean Corpuscular Volume 83 FL (80-99) Mean Corpuscular Hemoglobin 25.5 PG (27.0-31.0) L Mean Corpuscular Hemoglobin Concent 30.6 G/DL (32.0-36.0) L Red Cell Distribution Width 19.8 % (11.6-14.8) H Platelet Count 420 K/UL (150-450) Mean Platelet Volume 5.2 FL (6.5-10.1) L Neutrophils (%) (Auto) 48.6 % (45.0-75.0) Lymphocytes (%) (Auto) 26.2 % (20.0-45.0) Monocytes (%) (Auto) 10.8 % (1.0-10.0) H Eosinophils (%) (Auto) 13.0 % (0.0-3.0) H Basophils (%) (Auto) 1.4 % (0.0-2.0) Pro-B-Type Natriuretic Peptide 2108 pg/mL (0-125) H Objective HEAD AND NECK: Mild JVD. LUNGS: Clear. CARDIOVASCULAR: Regular S1 and S2 with no gallop. ABDOMEN: Soft. EXTREMITIES: No pitting edema. Diony Reeves MD Jan 18, 2020 11:03
--- NOTE | 2020-01-18 11:05 | NUR ---
CASE MANAGEMENT:REVIEW 01/18/20 SI: PNA. DECOMPENSATED CHF. EF 25% NSVT.FREQUENT PVC'S COVID NOT DETECTED 98.3 68 18 122/63 98% ON 2L/NC H/H-9.1/29.8 K-3.2 CO2+37 BNP+2108 IS: IV ROCEPHIN Q24 IV LASIX BID ZINC PO QD K-DUR PO X1 THEN QD MACROBID PO Q12 DOXYCYCLINE PO Q12 VITAMIN C PO QD MVI PO QD LISINOPRIL PO QD ALDACTONE PO QD COREG PO Q12 LOVENOX SQ QD ASA PO QD : TELEMETRY STATUS DCP: PATIENT IS FROM [facility] PLAN: NSVT D/T CARDIOMYOPATHY, FREQUENT PVC'S....NEEDS CARDIAC CATH AFTER PNA CLEARS
[2020-01-18] MEDS: Zinc Sulfate 220mg cap ORAL SCH (11:32)
[2020-01-18 12:00] VITALS: BP 131/68
--- NOTE | 2020-01-18 12:35 | NUR ---
PT notes: patient still with other discipline; will follow up later if time permits.
--- NOTE | 2020-01-18 12:39 | NUR ---
DISCHARGE PLANNING PATIENT IS FROM [facility] AND IS COVID 19 NEGATIVE DISCHARGE PLAN DISCUSSED WITH DR HANKS PER DR HANKS SHE IS REQUESTING PATIENT'S RECORDS FROM [facility] BECAUSE PATIENT MAY NEED CARDIAC CATH AT [facility] D/T NSVT AND FREQUENT PVC'S IN THE SETTING OF DECOMPENSATED CHF W/EF OF 25% NOT READY FOR DISCHARGE TODAY NOT APPROPRIATE FOR LOWER LEVEL OF CARE
--- NOTE | 2020-01-18 13:24 | Surgery Progress Note ---
Surgery Progress Note Subjective Additional Comments no acute events labs noted exam stable comfortable no complaints Objective Last 24 Hour Vital Signs Date Time Temp Pulse Resp B/P (MAP) Pulse Ox O2 Delivery O2 Flow Rate FiO2 01/18/20 12:00 98.6 73 18 131/68 (89) 97 01/18/20 12:00 77 01/18/20 10:11 122/63 01/18/20 10:11 68 122/63 01/18/20 09:00 Nasal Cannula 2.0 01/18/20 08:00 68 01/18/20 08:00 98.3 68 18 122/63 (82) 98 01/18/20 04:00 69 01/18/20 04:00 98.1 65 18 116/60 (78) 97 01/18/20 00:00 73 01/18/20 00:00 98.2 68 18 103/47 (65) 96 01/17/20 21:00 Nasal Cannula 2.0 01/17/20 20:44 72 128/80 01/17/20 20:00 98.2 80 18 128/80 (96) 96 01/17/20 20:00 86 01/17/20 16:00 96.8 76 18 124/84 (97) 98 01/17/20 15:52 104 01/17/20 15:44 76 01/17/20 15:09 128 I&O Intake and Output 01/17/20 01/18/20 19:00 07:00 Intake Total 640 ml Output Total 820 ml 800 ml Balance -180 ml -800 ml Intake Oral 640 ml Output Urine Total 820 ml 800 ml # Bowel Movements 1 Dressing: other Wound: other Drains: other Cardiovascular: RSR Respiratory: decreased breath sounds Abdomen: soft, non-tender, present bowel sounds Extremities: no tenderness, no cyanosis, pulses, other Laboratory Tests Test 01/17/20 13:32 01/18/20 07:50 Sodium Level 144 MMOL/L (136-145) 143 MMOL/L (136-145) Potassium Level 2.9 MMOL/L (3.5-5.1) L 3.2 MMOL/L (3.5-5.1) L Chloride Level 99 MMOL/L (98-107) 103 MMOL/L (98-107) Carbon Dioxide Level 38 MMOL/L (21-32) H 37 MMOL/L (21-32) H Anion Gap 7 mmol/L (5-15) 3 mmol/L (5-15) L Blood Urea Nitrogen 8 mg/dL (7-18) 6 mg/dL (7-18) L Creatinine 0.8 MG/DL (0.55-1.30) 0.6 MG/DL (0.55-1.30) Estimat Glomerular Filtration Rate > 60 mL/min (>60) > 60 mL/min (>60) Glucose Level 162 MG/DL (74-106) H 101 MG/DL (74-106) Calcium Level 9.0 MG/DL (8.5-10.1) 8.8 MG/DL (8.5-10.1) White Blood Count 7.9 K/UL (4.8-10.8) Red Blood Count 3.58 M/UL (4.20-5.40) L Hemoglobin 9.1 G/DL (12.0-16.0) L Hematocrit 29.8 % (37.0-47.0) L Mean Corpuscular Volume 83 FL (80-99) Mean Corpuscular Hemoglobin 25.5 PG (27.0-31.0) L Mean Corpuscular Hemoglobin Concent 30.6 G/DL (32.0-36.0) L Red Cell Distribution Width 19.8 % (11.6-14.8) H Platelet Count 420 K/UL (150-450) Mean Platelet Volume 5.2 FL (6.5-10.1) L Neutrophils (%) (Auto) 48.6 % (45.0-75.0) Lymphocytes (%) (Auto) 26.2 % (20.0-45.0) Monocytes (%) (Auto) 10.8 % (1.0-10.0) H Eosinophils (%) (Auto) 13.0 % (0.0-3.0) H Basophils (%) (Auto) 1.4 % (0.0-2.0) Pro-B-Type Natriuretic Peptide 2108 pg/mL (0-125) H Plan Problems: (1) Suspected COVID-19 virus infection (2) Weakness (3) Pneumonia Assessment & Plan: Lungs/pleura: Bibasilar opacities may represent atelectasis versus pneumonia. Small bilateral pleural effusions and/or pleural thickening. Background of chronic interstitial lung changes and probable emphysema. Heart/mediastinum: Enlargement of the cardiac silhouette. Atherosclerotic calcifications of the aorta. Soft tissues: Unremarkable. Bones: No acute fracture. Generative changes of the acromioclavicular joints. Upper abdomen: Normal. IMPRESSION: 1. Bibasilar opacities may represent atelectasis versus pneumonia. Small bilateral pleural effusions and/or pleural thickening. 2. Background of chronic interstitial lung changes and probable emphysema. (4) CHF (congestive heart failure) (5) Abdominal pain Assessment & Plan: currently no abdominal pain states had prior but more like reflux rx given will monitor DAILY ESTIMATED NEEDS: Needs based on Cardiac, wounds/ 60kg abw 25-30 kcals/kg [id number] total kcals 1.25-1.5 g protein/kg 75-90 g total protein 1500ml fluid restriction per MD mL/kg . total fluid mLs NUTRITION DIAGNOSIS: * Increased prot intake needs R/T wound healing as evidenced by admitted w/ multiple wounds including open wounds @ Lt ankle and Lt buttock per photos, pending evaluation. * Altered nutrition related lab values R/T CHF as evidenced by elev BNP ([phone]), on Lasix and 1.5 L fluid restriction. CURRENT DIET:CARDIAC PO DIET RECOMMENDATIONS: LOW NA/ texture as tolerated ADDITIONAL RECOMMENDATIONS: * Daily calibrated bedscale wt : CHF dx * Wound healing: add MVI x 1, Vit C 500mg QD, ZnSO4 220mg QD x 10 days NEHEMIAS BID as tolerated/ f/up w/ WC eval * Fluid restriction per MD * Monitor lytes closely w/ Lasix, replete as needed (6) Lower extremity ulceration Assessment & Plan: Pt presented on admission with multiple pressure injuries, Stasis ulcer R lateral Malleolus. Full thickness stage 4 pressure injury R lower gluteus. Base of wound is 90% beefy red,10% scattered slough,edges adherent to base of wound. Small amt sanguineous exudate noted. Full thickness pressure injury. Base of wound is beefy red and moist . Small amt sanguineous exudate noted. Three additional Unstageable pressure injuries noted to upper R gluteus. Pressure injury upper/medial R gluteal cheek has 100% slough. Pressure injury Uppermost R buttocks has 100% slough. Just inferior is 3rd pressure Unstageable pressure injury that has 100% slough. Periwound skin is maroon in color with denuded area at cleft of buttocks. Partially opened DTPI R ischium. Base of wound is maroon with scattered open areas within base of injury. No odor or exudate noted. An area of hyperpigmentation from previous wound noted to L buttocks with surrounding maroon discoloration. Partial thickness pressure injury posterior upper R thigh. Base of wound is moist and viable with surrounding non-blanching erythema. Full thickness stage 4 pressure injury Lateral L malleolus. [place] granulation at base of wound. Edges are adherent to base of wound. Hemosiderin periwound . Purple marker noted along borders of wound. Non-blanching erythema L Hallux. Non-blanching erythema noted to R st metatarsal. Both heels are boggy with non-blanching erythema. Historical scars noted to distal/lateral R tibia,Lateral R malleolus and dorsal R foot. Tx.Plan: Cleanse wounds R buttocks/R Ischium with TheraHoney. Apply Moisture Barrier Paste periwounds and to L buttocks. Cover with Optifoam drsgs. Change every 3 days and prn. Cleanse wound L lateral Malleolus. Apply Therahoney. Apply Cavilon Skin Barrier periwound. Cover with Optifoam drsg. Change every 3 days and prn. Apply Moisture Barrier Paste to posterior and medial aspects of both upper thighs with each Incontinence care. Apply Cavilon Skin Barrier to both heels.Cover each heel with Optifoam drsg. Change every 7 days and prn. Reposition at least every 2hours or as tolerated. Off-load heels with pillow. APM/LETICIA Mattress. Reposition at least every 2hours or as tolerated. Off-load heels with pillow. venous incompetence noted patients has had for some time but without significant improvement unknown prior trauma tender on palpation with some granulation tissue. no necrotic tissue or eschar also with sacral wound wash wound daily with normal saline, apply therahoney and foam dressing keep legs elevated turn q2h off load pressure will follow with recs thank you Gianluca Cummins Jan 18, 2020 13:24
[2020-01-18 16:00] VITALS: BP 127/73
--- NOTE | 2020-01-18 18:45 | NUR ---
NURSE NOTES: Patient had 6 beats run of VTACH. Asymptomatic. Message left to Dr. Reeves awaiting call back.
--- NOTE | 2020-01-18 19:37 | NUR ---
HAND-OFF: Report given to Skip Peacock. Patient stable. Plan of care endorsed.
--- NOTE | 2020-01-18 19:48 | NUR ---
NURSE NOTES: Received report from CHRISTINA Mantilla. Patient is awake lying semi-baron's; resting comfortably. No signs of acute distress noted; complains of pain. On 1L nasal cannula. AOx3; able to make needs known. Primarily Maori speaking. Checked IV site; patent and flushed. No erythema, bleeding, or infiltration noted. Sanchez catheter draining well to gravity. Patient on P200, low air loss mattress for appropriate wound management. Bed at lowest position, brakes on, siderails up x3. Call light within reach. Will continue to monitor.
[2020-01-18 20:00] VITALS: BP 100/59
[2020-01-18] MEDS: Morphine Sulfate 2mg/ml Inj(IV/IM USE ONLY) IVP PRN (21:59)
[2020-01-19] VITALS: BP 127/63
--- NOTE | 2020-01-19 03:55 | NUR ---
NURSE NOTES: Patient is asleep lying semi-baron's; resting comfortably. On 1L nasal cannula. No signs of acute distress or pain noted at this time.
--- NOTE | 2020-01-19 07:34 | NUR ---
HAND-OFF: Report given to CHRISTINA Moffett. Patient is awake lying high-baron's eating breakfast. On 1L nasal cannula. Sanchez catheter draining well to gravity. In stable condition.
--- NOTE | 2020-01-19 07:35 | NUR ---
NURSE NOTES: Received patient in bed awake. O2 via NC in place, no SOB or acute distress. IV lines on right hand and left AC intact. Sanchez catheter intact, draining yellow colored urine. HOB elevated. Bed locked in lowest position. Call light within reach. Will continue plan of care.
[2020-01-19 07:51] LABS: BASOPHILS % (AUTO) 1.7 % (0.0-2.0); EOSINOPHILS % (AUTO) 17.2 % (0.0-3.0); HEMATOCRIT 29.6 % (37.0-47.0); HEMOGLOBIN 9.1 G/DL (12.0-16.0); LYMPHOCYTES % (AUTO) 27.5 % (20.0-45.0); MEAN CORPUSCULAR VOLUME 84 FL (80-99); MONOCYTES % (AUTO) 11.2 % (1.0-10.0); NEUTROPHILS % (AUTO) 42.5 % (45.0-75.0); PLATELET COUNT 384 K/UL (150-450); RED BLOOD COUNT 3.53 M/UL (4.20-5.40); RED CELL DISTRIBUTION WIDTH 19.5 % (11.6-14.8); WHITE BLOOD COUNT 7.4 K/UL (4.8-10.8)
[2020-01-19 08:00] VITALS: BP 108/54
[2020-01-19 08:07] LABS: ANION GAP 4 mmol/L (5-15); BLOOD UREA NITROGEN 6 mg/dL (7-18); CARBON DIOXIDE 34 MMOL/L (21-32); CHLORIDE 104 MMOL/L (98-107); CREATININE 0.6 MG/DL (0.55-1.30); POTASSIUM 3.7 MMOL/L (3.5-5.1); SODIUM 142 MMOL/L (136-145)
[2020-01-19] MEDS: Lisinopril 10mg tab ORAL SCH (09:00)
--- NOTE | 2020-01-19 09:01 | General Progress Note ---
Assessment/Plan Assessment/Plan: 74 yr F w/ Hx HTN, CHF, DM2 admitted via ED with SOB c/w CHF exacerbation w/ suspected underlying PNA undergoing COVID 19 rule out. #HCAP/PNA #COPD/Emphysema #Acute hypoxic respiratory failure (suspect pts sats < 88% on RA should be taken off O2 w/ pulm infiltrates and CHF) #Enterococcus UTI - cont. in pt medical care - COVID 19 PCR -> Negative - No need to retest COVID on pt per /IA - d/c COVID 19 isolation precautions for now - Blood Cx NGTD - Sputum Cx normal erickson - Supplemental O2 as needed - Nebs prn for SOB/Wheeze - Pulm following - cont. Azithromycin (01/13 - 01/16), stopped due to PVCS, Ceftriaxone (01/13 - ), Doxycycline (01/16 - ), macrobid #11/23 - ID following, recs appreciated #Acute decompensated CHF #Acute on Chronic systolic heart failure #NSVT #PVCs #elevated BNP - front desk monitor - BNP likely 2/2 CHF - 1.5 L fluid restriction, cardiac diet - strict i/o's and daily weights - workup and abx as above - TTE EF 25-30% - cont. Lasix 40 IV BID, goal neg 1L per day - awaiting records from [facility] - d/w cardio, states pt's last cardiac cath >3 months ago w/EF <35 - d/w grand daughter, Yanira Holland, , stated pt consents to ICD placement - plan for ICD placement per cardio #Hypokalemia - replace - pt on lasix for acute HF - potassium 20 mEq q/daily while on lasix #Venous Stasis Ulcers -Wound care following, recs appreciated [facility] I spent 36 min on this case and 25 min was dedicated to counseling and care coordination including discussion including communication w/[facility] VASQUEZ, discussed with granddaughter. Time of this note may not reflect the time of the clinical encounter. Subjective Allergies: Coded Allergies: No Known Allergies (Unverified , 01/14/20) Subjective F/u for acute CHF exacerbation. Awaiting records from [facility]. D/w granddaughterLupe, states pt wants to proceed w/ ICD placement. Denies CP at this time. Objective Last 24 Hour Vital Signs Date Time Temp Pulse Resp B/P (MAP) Pulse Ox O2 Delivery O2 Flow Rate FiO2 01/19/20 04:00 68 01/19/20 00:00 97.9 72 17 127/63 (84) 95 01/19/20 00:00 69 01/18/20 21:41 77 100/59 01/18/20 21:00 Nasal Cannula 1.0 01/18/20 20:00 96.7 77 18 100/59 (73) 96 01/18/20 20:00 81 01/18/20 16:00 80 01/18/20 16:00 98.8 80 19 127/73 (91) 98 01/18/20 12:00 98.6 73 18 131/68 (89) 97 01/18/20 12:00 77 01/18/20 10:11 122/63 01/18/20 10:11 68 122/63 01/18/20 09:00 Nasal Cannula 2.0 Intake and Output 01/18/20 01/19/20 19:00 07:00 Intake Total 860 ml 240 ml Output Total 850 ml Balance 860 ml -610 ml Intake Oral 860 ml 240 ml Output Urine Total 850 ml # Bowel Movements 2 Laboratory Tests 01/19/20 05:43: White Blood Count 7.4, Red Blood Count 3.53L, Hemoglobin 9.1L, Hematocrit 29.6L , Mean Corpuscular Volume 84, Mean Corpuscular Hemoglobin 25.8L, Mean Corpuscular Hemoglobin Concent 30.8L, Red Cell Distribution Width 19.5H, Platelet Count 384, Mean Platelet Volume 5.2L, Neutrophils (%) (Auto) 42.5L, Lymphocytes (%) (Auto) 27.5, Monocytes (%) (Auto) 11.2H, Eosinophils (%) (Auto) 17.2H, Basophils (%) (Auto) 1.7, Sodium Level 142, Potassium Level 3.7, Chloride Level 104, Carbon Dioxide Level 34H, Anion Gap 4L, Blood Urea Nitrogen 6L, Creatinine 0.6, Estimat Glomerular Filtration Rate > 60, Glucose Level 84, Calcium Level 9.0 Height (Feet): 5 Height (Inches): 5.00 Weight (Pounds): 141 Objective General Appearance: WD/WN, no apparent distress, sitting up in bed comfortably HEENT: NCAT, EOMI Neck: supple Respiratory/Chest: lungs clear, normal breath sounds, no respiratory distress, no accessory muscle use Cardiovascular/Chest: RRR, no gallop/murmur, JVD Abdomen: normal bowel sounds, non tender, soft Extremities: normal inspection, no edema appreciated Hannah Killian M.D. Jan 19, 2020 09:01
[2020-01-19] MEDS: Ascorbic Acid 500mg tab ORAL SCH (09:03)
[2020-01-19] MEDS: Spironolactone 25mg tab ORAL SCH (09:04)
[2020-01-19] MEDS: Docusate 100mg cap ORAL SCH (09:05)
[2020-01-19] MEDS: Doxycycline Monohydrate 100mg ORAL SCH (09:05)
[2020-01-19] MEDS: Aspirin Baby 81mg ORAL SCH (09:05)
[2020-01-19] MEDS: cefTRIAXone 1 GM in NS 55 ML IVPB SCH (09:06)
[2020-01-19] MEDS: Enoxaparin 40mg Inj SUBQ SCH (09:08)
--- NOTE | 2020-01-19 10:46 | Diagnostic Imaging Report ---
Indication: Shortness of breath Technique: One view of the chest Comparison: 01/14/2020 Findings: There is decreased pleural fluid at the right lung base. Retrocardiac consolidation persists. There is likely decreased pleural fluid on the left. Generalized diffuse interstitial prominence is unchanged. The heart size is upper limits normal. Impression: Decreased right basilar atelectasis and pleural fluid Unchanged left basilar atelectasis and possible consolidation Suspect decreased left pleural fluid Background interstitial prominence, likely chronic, stable
--- NOTE | 2020-01-19 11:44 | Pulmonology Progress Note ---
Assessment/Plan Assessment/Plan IMPRESSION: 1. Decompensated congestive heart failure. 2. Hypertension. 3. Diabetes mellitus. 4. Rule out COVID-19. DISCUSSION: Initial COVID-19 testing negative. I will follow as assistant brand manager. Currently, the patient is saturating well on low-flow oxygen. Continue home medications. Continue Lasix. Pawan Holland M.D. Subjective Interval Events: COVID 19 pcr x 1 negative Constitutional: Reports: no symptoms HEENT: Repors: no symptoms Respiratory: Reports: shortness of breath Cardiovascular: Reports: no symptoms Gastrointestinal/Abdominal: Reports: no symptoms Genitourinary: Reports: no symptoms Allergies: Coded Allergies: No Known Allergies (Unverified , 01/14/20) Objective Last 24 Hour Vital Signs Date Time Temp Pulse Resp B/P (MAP) Pulse Ox O2 Delivery O2 Flow Rate FiO2 01/19/20 09:00 108/54 01/19/20 09:00 78 108/54 01/19/20 08:00 98.2 78 19 108/54 (72) 94 01/19/20 04:00 68 01/19/20 00:00 97.9 72 17 127/63 (84) 95 01/19/20 00:00 69 01/18/20 21:41 77 100/59 01/18/20 21:00 Nasal Cannula 1.0 01/18/20 20:00 96.7 77 18 100/59 (73) 96 01/18/20 20:00 81 01/18/20 16:00 80 01/18/20 16:00 98.8 80 19 127/73 (91) 98 01/18/20 12:00 98.6 73 18 131/68 (89) 97 01/18/20 12:00 77 Intake and Output 01/18/20 01/19/20 19:00 07:00 Intake Total 860 ml 240 ml Output Total 850 ml Balance 860 ml -610 ml Intake Oral 860 ml 240 ml Output Urine Total 850 ml # Bowel Movements 2 General Appearance: no acute distress HEENT: normocephalic, mucous membranes moist, PERRL Respiratory/Chest: chest wall non-tender Cardiovascular: normal peripheral pulses Abdomen: normal bowel sounds Extremities: no cyanosis Neurologic/Psychiatric: alert Laboratory Tests 01/19/20 05:43: White Blood Count 7.4, Red Blood Count 3.53L, Hemoglobin 9.1L, Hematocrit 29.6L , Mean Corpuscular Volume 84, Mean Corpuscular Hemoglobin 25.8L, Mean Corpuscular Hemoglobin Concent 30.8L, Red Cell Distribution Width 19.5H, Platelet Count 384, Mean Platelet Volume 5.2L, Neutrophils (%) (Auto) 42.5L, Lymphocytes (%) (Auto) 27.5, Monocytes (%) (Auto) 11.2H, Eosinophils (%) (Auto) 17.2H, Basophils (%) (Auto) 1.7, Sodium Level 142, Potassium Level 3.7, Chloride Level 104, Carbon Dioxide Level 34H, Anion Gap 4L, Blood Urea Nitrogen 6L, Creatinine 0.6, Estimat Glomerular Filtration Rate > 60, Glucose Level 84, Calcium Level 9.0 Current Medications Medications (Trade) Dose Ordered Sig/Yolanda Route PRN Reason Start Time Stop Time Status Last Admin Dose Admin Acetaminophen (Tylenol) 650 mg Q4H PRN ORAL Mild Pain (Pain Scale 1-3) 01/14/20 14:30 02/13/20 14:29 01/17/20 18:31 Acetaminophen (Tylenol) 650 mg Q4H PRN ORAL FEVER 01/14/20 14:30 02/13/20 14:29 Acetaminophen (Tylenol) 650 mg Q4H PRN RECTAL FEVER 01/14/20 14:30 02/13/20 14:29 Acetaminophen (Tylenol) 650 mg Q4H PRN RECTAL Mild Pain (Pain Scale 1-3) 01/14/20 14:30 02/13/20 14:29 Albuterol/ Ipratropium (Albuterol/ Ipratropium) 3 ml Q6HRT PRN HHN SOB/Wheeze 01/15/20 15:00 01/20/20 14:59 Ascorbic Acid (Vitamin C) 500 mg DAILY ORAL 01/17/20 09:00 02/16/20 08:59 01/19/20 09:03 Aspirin (ASA) 162 mg DAILY ORAL 01/15/20 09:00 02/29/20 08:59 01/19/20 09:05 Carvedilol (Coreg) 3.125 mg EVERY 12 HOURS ORAL 01/16/20 21:00 02/15/20 20:59 01/18/20 10:11 Ceftriaxone Sodium 1 gm/ Sodium Chloride 55 ml @ 110 mls/hr DAILY IVPB 01/15/20 09:00 01/22/20 08:59 01/19/20 09:06 Diphenhydramine HCl (Benadryl) 25 mg Q6H PRN ORAL Itching/Pruritis/insomnia 01/14/20 14:30 02/13/20 14:29 Docusate Sodium (Colace) 100 mg EVERY 12 HOURS ORAL 01/14/20 21:00 02/13/20 20:59 01/19/20 09:05 Doxycycline Monohydrate (Doxycycline Monohydrate) 100 mg Q12HR@0800,2000 ORAL 01/18/20 08:00 01/25/20 07:59 01/19/20 09:05 Enoxaparin Sodium (Lovenox) 40 mg DAILY SUBQ 01/15/20 09:00 04/14/20 08:59 01/19/20 09:08 Famotidine (Pepcid) 20 mg Q12H PRN ORAL gerd 01/14/20 14:30 04/13/20 14:29 Furosemide (Lasix) 40 mg DAILY IV 01/19/20 09:00 02/13/20 17:59 01/19/20 09:07 Lisinopril (ZestriL) 10 mg DAILY ORAL 01/17/20 09:00 02/16/20 08:59 01/18/20 10:11 Morphine Sulfate (Morphine Sulfate) 2 mg Q4H PRN IVP Moderate Pain (Pain Scale 4-6) 01/14/20 14:30 01/21/20 14:29 01/18/20 21:59 Morphine Sulfate (Morphine Sulfate) 4 mg Q4H PRN IVP Severe Pain (Pain Scale 7-10) 01/14/20 14:30 01/21/20 14:29 Multivitamins (Multivitamins) 1 tab DAILY ORAL 01/17/20 09:00 02/16/20 08:59 01/19/20 09:05 Nitrofurantoin (Macrobid) 100 mg EVERY 12 HOURS ORAL 01/18/20 09:00 04/17/20 08:59 01/19/20 09:03 Nitroglycerin (Ntg) 0.4 mg Q5M PRN SL Prn Chest Pain 01/14/20 14:30 02/13/20 14:29 Ondansetron HCl (Zofran) 4 mg Q6H PRN IVP Nausea & Vomiting 01/14/20 14:30 02/13/20 14:29 Polyethylene Glycol (Miralax) 17 gm DAILYPRN PRN ORAL Constipation 01/14/20 14:30 02/13/20 14:29 Potassium Chloride (K-Dur) 20 meq DAILY ORAL 01/18/20 09:00 04/17/20 08:59 01/19/20 09:03 Spironolactone (Aldactone) 25 mg DAILY ORAL 01/17/20 09:00 02/16/20 08:59 01/19/20 09:04 Zinc Sulfate (Zinc Sulfate) 220 mg DAILY@1200 ORAL 01/18/20 12:00 04/16/20 08:59 01/18/20 11:32 Pawan Holland MD Jan 19, 2020 11:44
[2020-01-19] MEDS: Zinc Sulfate 220mg cap ORAL SCH (11:45)
[2020-01-19 12:00] VITALS: BP 123/50
--- NOTE | 2020-01-19 12:55 | Cardiac Electrophysiology PN ---
Assessment/Plan Assessment/Plan 1. CHF exacerbation with BNP of more than 6000 due to CHF and EF 25%. Ruled out for [place]. On Lasix to 40 mg IV daily, Coreg 3.125 bid and Lisinopril 10 daily and Aldactone 25 daily Records from [facility] 12/21/2019 showed Hx of CHF but no detail about its duration or its cause and no Echo.Was admitted Fall/Syncope with head injury Needs cardiac cath to R/O ischemic CMP after PNA is cleared. Will transfer to [facility]. 2. Frequent long runs of NSVT. Due to CMP. Likely needs BIV ICD in view of LBBB. 3. LBBB 4. Pneumonia. On ceftriaxone, azithromycin and the COVID-19 test is negative 5. Anemia, hemoglobin 8.5. 6. Diabetes. RASHIDA RN and Dr. Maria D FIELD Grand daughter, Yanira Marie [phone] who is agreeable and already talked to patient who is also consenting for Cath and possible ICD Transfer to [facility] Subjective Subjective Has frequent PVCs and nonsustained VTs of 10 and 17 beats at rate 180s. Off isolation as Covid is negative Reviewed records from [facility] 12/21/2019 showed Hx of CHF but no detail about its duration and no Echo. Had Fall/Syncope with head injury Objective Last 24 Hour Vital Signs Date Time Temp Pulse Resp B/P (MAP) Pulse Ox O2 Delivery O2 Flow Rate FiO2 01/19/20 12:00 98.2 78 19 123/50 (74) 94 01/19/20 09:00 Nasal Cannula 1.0 01/19/20 09:00 108/54 01/19/20 09:00 78 108/54 01/19/20 08:00 98.2 78 19 108/54 (72) 94 01/19/20 08:00 80 01/19/20 04:00 68 01/19/20 00:00 97.9 72 17 127/63 (84) 95 01/19/20 00:00 69 01/18/20 21:41 77 100/59 01/18/20 21:00 Nasal Cannula 1.0 01/18/20 20:00 96.7 77 18 100/59 (73) 96 01/18/20 20:00 81 01/18/20 16:00 80 01/18/20 16:00 98.8 80 19 127/73 (91) 98 Intake and Output 01/18/20 01/19/20 19:00 07:00 Intake Total 860 ml 240 ml Output Total 850 ml Balance 860 ml -610 ml Intake Oral 860 ml 240 ml Output Urine Total 850 ml # Bowel Movements 2 Laboratory Tests Test 01/19/20 05:43 White Blood Count 7.4 K/UL (4.8-10.8) Red Blood Count 3.53 M/UL (4.20-5.40) L Hemoglobin 9.1 G/DL (12.0-16.0) L Hematocrit 29.6 % (37.0-47.0) L Mean Corpuscular Volume 84 FL (80-99) Mean Corpuscular Hemoglobin 25.8 PG (27.0-31.0) L Mean Corpuscular Hemoglobin Concent 30.8 G/DL (32.0-36.0) L Red Cell Distribution Width 19.5 % (11.6-14.8) H Platelet Count 384 K/UL (150-450) Mean Platelet Volume 5.2 FL (6.5-10.1) L Neutrophils (%) (Auto) 42.5 % (45.0-75.0) L Lymphocytes (%) (Auto) 27.5 % (20.0-45.0) Monocytes (%) (Auto) 11.2 % (1.0-10.0) H Eosinophils (%) (Auto) 17.2 % (0.0-3.0) H Basophils (%) (Auto) 1.7 % (0.0-2.0) Sodium Level 142 MMOL/L (136-145) Potassium Level 3.7 MMOL/L (3.5-5.1) Chloride Level 104 MMOL/L (98-107) Carbon Dioxide Level 34 MMOL/L (21-32) H Anion Gap 4 mmol/L (5-15) L Blood Urea Nitrogen 6 mg/dL (7-18) L Creatinine 0.6 MG/DL (0.55-1.30) Estimat Glomerular Filtration Rate > 60 mL/min (>60) Glucose Level 84 MG/DL (74-106) Calcium Level 9.0 MG/DL (8.5-10.1) Objective HEAD AND NECK: Mild JVD. LUNGS: Clear. CARDIOVASCULAR: Regular S1 and S2 with no gallop. ABDOMEN: Soft. EXTREMITIES: No pitting edema. Diony Reeves MD Jan 19, 2020 12:55
--- NOTE | 2020-01-19 13:16 | NUR ---
TRANSFER UPDATE TRANSFER DISCUSSED WITH DR DEMARIO HEWITT HAS PLACED PATIENT ON THE LIST FOR TRANSFER SPINNING OPERATOR FAXED FACESHEET TO [facility]. WHEN BED IS AVAILABLE WONG WILL CALL US [facility] T: [phone] F: [phone] Addendum: 01/19/20 at 1427 by MODE BURK LVN LVN CALL PLACED TO [facility] SPOKE WITH KYLE WHO CONFIRMED THEY RECEIVE THE TRANSFER REQUEST. THEY ARE CURRENTLY WORKING ON FINANCIAL CLEARANCE. PROVIDED KYLE WITH THIS REFRIGERATION INSTALLER NUMBER AND ALSO THE NURSES STATION'S PHONE NUMBER
[2020-01-19] MEDS ORDERED: ZESTRIL10 M1 ORAL (13:20)
[2020-01-19] MEDS ORDERED: MACROBID100 MG ORAL (13:20)
[2020-01-19] MEDS ORDERED: ASPIRIN81 MG ORAL (13:20)
[2020-01-19] MEDS ORDERED: LOVENOX10 M4 SUBQ (13:20)
[2020-01-19] MEDS ORDERED: DOXYCYCLINE MO100 MG ORAL (13:20)
[2020-01-19] MEDS ORDERED: SPIRONOLACTONE25 MG ORAL (13:20)
[2020-01-19] MEDS ORDERED: DEMADEX10 MG IV (13:20)
[2020-01-19] MEDS ORDERED: COREG3.125 MG ORAL (13:20)
--- NOTE | 2020-01-19 13:28 | Discharge Summary ---
Discharge Summary Hospital Course Date of Admission Jan 15, 2020 at 16:54 Date of Discharge Admitting Diagnosis Weakness HPI Devika Dsouza is a 74 year old female who was admitted on Jan 15, 2020 at 16:54 for Weakness Hospital Course 74 yr F w/ Hx HTN, CHF, DM2 admitted via ED with SOB c/w CHF exacerbation w/ suspected underlying PNA. COVID 19 negative. BCx negative, SCx w/normal erickson, pt stated on abx per ID, Dr. Maurice, CTX, doxycycline. Pt w/Enterococcus UTI and started on macrobid, on day 3 of 5. Pt w/history CHF, found to be in acute on chronic systolic heart failure with BNP more than 6000. Echo with EF 25%. Patient was started on Lasix 40 mg IV daily, Coreg 3.125 twice daily and lisinopril 10 daily and Aldactone 25 daily. Records from [facility] 12/21/2019 showed history of CHF but no detail about episcopal or cause and no echo. Patient was admitted at that time for fall/syncope with head injury. Patient currently needs cardiac cath to rule out ischemic cardiomyopathy after pneumonia is cleared. Plan of care was discussed with patient's granddaughter, Lupe Alex, who is also consenting for cath and possible ICD. Patient in stable condition and will be transferred to [facility] for higher level of care. #HCAP/PNA #COPD/Emphysema #Acute hypoxic respiratory failure (suspect pts sats < 88% on RA should be taken off O2 w/ pulm infiltrates and CHF) #Enterococcus UTI #Acute decompensated CHF #Acute on Chronic systolic heart failure #NSVT #PVCs #elevated BNP #Hypokalemia #Venous Stasis Ulcers D/c planning >30 mins. Discharge Medications New Medications: Aspirin* (Aspirin*) 81 Mg Tab.chew 162 MG ORAL DAILY for 30 Days, #30 TAB Carvedilol (Coreg) 3.125 Mg Tablet 3.125 MG ORAL EVERY 12 HOURS for 30 Days, #60 TAB Doxycycline Monohydrate* (Doxycycline Monohydrate*) 100 Mg Capsule 100 MG ORAL Q12HR@0800,2000 for 30 Days, #60 CAP Enoxaparin* (Lovenox*) 40 Mg/0.4 Ml Inj 40 MG SUBQ DAILY for 30 Days, #30 EA Furosemide (Furosemide) 10 Mg/1 Ml Vial 40 MG IV DAILY for 30 Days, VIAL Lisinopril* (Zestril*) 10 Mg Tablet 10 MG ORAL DAILY for 30 Days, TAB Nitrofurantoin Monohyd/M-Cryst (Nitrofurantoin [place]-Mcr 100 mg) 100 Mg Capsule 100 MG ORAL EVERY 12 HOURS for 5 Days, #10 CAP Spironolactone* (Aldactone*) 25 Mg Tablet 25 MG ORAL DAILY for 30 Days, #30 TAB Continued Medications: Acetaminophen* (Acetaminophen 325MG Tablet*) 325 Mg Tablet 650 MG ORAL Q4H PRN for For Pain, TAB Amino Acids/Protein Hydrolys (Pro-Stat Liquid) 30 Ml Liquid.pkt 30 ML ORAL THREE TIMES A DAY for wound healing, ML Ascorbic Acid* (Ascorbic Acid*) 500 Mg Tablet 500 MG ORAL DAILY for supplement, TAB Budesonide/Formoterol Fumarate (Symbicort 160-4.5 Mcg Inhaler) 10.2 Gm Hfa.aer.ad 2 PUFF IH TWICE A DAY for COPD, #1 INH 0 Refills Ceftriaxone Sodium (Ceftriaxone) 1 Gm Vial 1 GM IV DAILY for pneumonia, VIAL Ipratropium/Albuterol Sulfate (Combivent Respimat Inhal [place]) 4 Gm Mist.inhal 4 GM IH Q6HR for COPD, GM Lactobacillus Acidophilus (Probiotic) 1 Each Capsule 1 EACH PO TWICE A DAY for supplement, CAP Lactulose (Lactulose*) 20 Gm/30 Ml Solution 30 ML ORAL DAILY for constipation, ML 0 Refills Multivitamin With Minerals (Multivitamins With Minerals*) 1 Each Tablet 1 TAB ORAL DAILY for supplement, TAB Ondansetron* (Zofran*) 4 Mg Tablet 4 MG ORAL Q6H PRN for Nausea & Vomiting, TAB Pantoprazole* (Pantoprazole*) 40 Mg Tablet.dr 40 MG ORAL DAILY for GERD, TAB Discontinued Medications: Apixaban (Eliquis) 5 Mg Tablet 5 MG PO TWICE A DAY for DVT, TAB Azithromycin* (Zithromax*) 250 Mg Tablet 500 MG ORAL DAILY for pneumonia, TAB Discharge Condition Upon Discharge: stable Discharge Vital Signs Last Vital Signs Date Time Temp Pulse Resp B/P (MAP) Pulse Ox O2 Delivery O2 Flow Rate FiO2 01/19/20 12:00 98.2 78 19 123/50 (74) 94 01/19/20 09:00 Nasal Cannula 1.0 Discharge Disposition Patient was discharged to higher level of care. Hannah Killian M.D. Jan 19, 2020 13:28
--- NOTE | 2020-01-19 15:51 | Surgery Progress Note ---
Surgery Progress Note Subjective Symptoms: improved, tolerating diet, voiding well, passing flatus Objective Last 24 Hour Vital Signs Date Time Temp Pulse Resp B/P (MAP) Pulse Ox O2 Delivery O2 Flow Rate FiO2 01/19/20 12:00 84 01/19/20 12:00 98.2 78 19 123/50 (74) 94 01/19/20 09:00 Nasal Cannula 1.0 01/19/20 09:00 108/54 01/19/20 09:00 78 108/54 01/19/20 08:00 98.2 78 19 108/54 (72) 94 01/19/20 08:00 80 01/19/20 04:00 68 01/19/20 00:00 97.9 72 17 127/63 (84) 95 01/19/20 00:00 69 01/18/20 21:41 77 100/59 01/18/20 21:00 Nasal Cannula 1.0 01/18/20 20:00 96.7 77 18 100/59 (73) 96 01/18/20 20:00 81 01/18/20 16:00 80 01/18/20 16:00 98.8 80 19 127/73 (91) 98 I&O Intake and Output 01/18/20 01/19/20 19:00 07:00 Intake Total 860 ml 240 ml Output Total 850 ml Balance 860 ml -610 ml Intake Oral 860 ml 240 ml Output Urine Total 850 ml # Bowel Movements 2 Dressing: dry Wound: clean Cardiovascular: RSR Respiratory: clear Abdomen: soft, non-tender, present bowel sounds Extremities: no cyanosis, pulses, other Laboratory Tests Test 01/19/20 05:43 White Blood Count 7.4 K/UL (4.8-10.8) Red Blood Count 3.53 M/UL (4.20-5.40) L Hemoglobin 9.1 G/DL (12.0-16.0) L Hematocrit 29.6 % (37.0-47.0) L Mean Corpuscular Volume 84 FL (80-99) Mean Corpuscular Hemoglobin 25.8 PG (27.0-31.0) L Mean Corpuscular Hemoglobin Concent 30.8 G/DL (32.0-36.0) L Red Cell Distribution Width 19.5 % (11.6-14.8) H Platelet Count 384 K/UL (150-450) Mean Platelet Volume 5.2 FL (6.5-10.1) L Neutrophils (%) (Auto) 42.5 % (45.0-75.0) L Lymphocytes (%) (Auto) 27.5 % (20.0-45.0) Monocytes (%) (Auto) 11.2 % (1.0-10.0) H Eosinophils (%) (Auto) 17.2 % (0.0-3.0) H Basophils (%) (Auto) 1.7 % (0.0-2.0) Sodium Level 142 MMOL/L (136-145) Potassium Level 3.7 MMOL/L (3.5-5.1) Chloride Level 104 MMOL/L (98-107) Carbon Dioxide Level 34 MMOL/L (21-32) H Anion Gap 4 mmol/L (5-15) L Blood Urea Nitrogen 6 mg/dL (7-18) L Creatinine 0.6 MG/DL (0.55-1.30) Estimat Glomerular Filtration Rate > 60 mL/min (>60) Glucose Level 84 MG/DL (74-106) Calcium Level 9.0 MG/DL (8.5-10.1) Plan Problems: (1) Suspected COVID-19 virus infection (2) Weakness (3) Pneumonia Assessment & Plan: Lungs/pleura: Bibasilar opacities may represent atelectasis versus pneumonia. Small bilateral pleural effusions and/or pleural thickening. Background of chronic interstitial lung changes and probable emphysema. Heart/mediastinum: Enlargement of the cardiac silhouette. Atherosclerotic calcifications of the aorta. Soft tissues: Unremarkable. Bones: No acute fracture. Generative changes of the acromioclavicular joints. Upper abdomen: Normal. IMPRESSION: 1. Bibasilar opacities may represent atelectasis versus pneumonia. Small bilateral pleural effusions and/or pleural thickening. 2. Background of chronic interstitial lung changes and probable emphysema. Decreased right basilar atelectasis and pleural fluid Unchanged left basilar atelectasis and possible consolidation Suspect decreased left pleural fluid Background interstitial prominence, likely chronic, stable (4) CHF (congestive heart failure) (5) Abdominal pain Assessment & Plan: currently no abdominal pain states had prior but more like reflux rx given will monitor d/c planning thank you DAILY ESTIMATED NEEDS: Needs based on Cardiac, wounds/ 60kg abw 25-30 kcals/kg 2804-2835 total kcals 1.25-1.5 g protein/kg 75-90 g total protein 1500ml fluid restriction per MD mL/kg . total fluid mLs NUTRITION DIAGNOSIS: * Increased prot intake needs R/T wound healing as evidenced by admitted w/ multiple wounds including open wounds @ Lt ankle and Lt buttock per photos, pending evaluation. * Altered nutrition related lab values R/T CHF as evidenced by elev BNP ([phone]), on Lasix and 1.5 L fluid restriction. CURRENT DIET:CARDIAC PO DIET RECOMMENDATIONS: LOW NA/ texture as tolerated ADDITIONAL RECOMMENDATIONS: * Daily calibrated bedscale wt : CHF dx * Wound healing: add MVI x 1, Vit C 500mg QD, ZnSO4 220mg QD x 10 days NEHEMIAS BID as tolerated/ f/up w/ WC eval * Fluid restriction per MD * Monitor lytes closely w/ Lasix, replete as needed (6) Lower extremity ulceration Assessment & Plan: Pt presented on admission with multiple pressure injuries, Stasis ulcer R lateral Malleolus. Full thickness stage 4 pressure injury R lower gluteus. Base of wound is 90% beefy red,10% scattered slough,edges adherent to base of wound. Small amt sanguineous exudate noted. Full thickness pressure injury. Base of wound is beefy red and moist . Small amt sanguineous exudate noted. Three additional Unstageable pressure injuries noted to upper R gluteus. Pressure injury upper/medial R gluteal cheek has 100% slough. Pressure injury Uppermost R buttocks has 100% slough. Just inferior is 3rd pressure Unstageable pressure injury that has 100% slough. Periwound skin is maroon in color with denuded area at cleft of buttocks. Partially opened DTPI R ischium. Base of wound is maroon with scattered open areas within base of injury. No odor or exudate noted. An area of hyperpigmentation from previous wound noted to L buttocks with surrounding maroon discoloration. Partial thickness pressure injury posterior upper R thigh. Base of wound is moist and viable with surrounding non-blanching erythema. Full thickness stage 4 pressure injury Lateral L malleolus. [place] granulation at base of wound. Edges are adherent to base of wound. Hemosiderin periwound . Purple marker noted along borders of wound. Non-blanching erythema L Hallux. Non-blanching erythema noted to R st metatarsal. Both heels are boggy with non-blanching erythema. Historical scars noted to distal/lateral R tibia,Lateral R malleolus and dorsal R foot. Tx.Plan: Cleanse wounds R buttocks/R Ischium with TheraHoney. Apply Moisture Barrier Paste periwounds and to L buttocks. Cover with Optifoam drsgs. Change every 3 days and prn. Cleanse wound L lateral Malleolus. Apply Therahoney. Apply Cavilon Skin Barrier periwound. Cover with Optifoam drsg. Change every 3 days and prn. Apply Moisture Barrier Paste to posterior and medial aspects of both upper thighs with each Incontinence care. Apply Cavilon Skin Barrier to both heels.Cover each heel with Optifoam drsg. Change every 7 days and prn. Reposition at least every 2hours or as tolerated. Off-load heels with pillow. APM/LETICIA Mattress. Reposition at least every 2hours or as tolerated. cont above care plan upon d/c Gianluca Cummins Jan 19, 2020 15:51
[2020-01-19 16:00] VITALS: BP 116/55
--- NOTE | 2020-01-19 16:13 | NUR ---
STRAW HAT MACHINE OPERATOR NOTES PLACED A CALL TO [facility] TRANSFER [facility] SPOKE WITH KYLE, PT IS ACCEPTED TO [address] [place] [address] RO[address] 3[address]. NURSE TO CALL THE TRANSFER CENTER AT 1700 . [facility] TO TRANSPORT PT WITH AN ETA 1730 ACLS PROTOCOL.NURSE MADE AWARE.
--- NOTE | 2020-01-19 17:59 | NUR ---
NURSE NOTES: Patient for transport to [facility] for cardiac catheterization, transported via ambulance. Previously spoken with Merline for report. Belongings accounted for. Skin checked and pictures taken. Tele monitor removed. ID band removed. IV site on right hand intact. Sanchez catheter intact. Discharged accompanied by ambulance personnel. Addendum: 01/19/20 at 1813 by Betina Peacock RN Granddaughter cheo contacted regarding transfer, left message, awaiting callback.
--- NOTE | 2020-01-19 20:11 | Infectious Diseases Prog Note ---
Assessment/Plan Assessment/Plan Patient seen earlier today Late note entry ASSESSMENT AND PLAN: 1. CAP, enterococcus uti, covid-19 testing negative - ceftriaxone and doxycycline - macrobid - day # 3 - covid-19 isolation - will repeat covid-19 testing per [facility] policy - d/w Dr. Killian - monitor labs and chest x-ray - for transfer for heart catheterization at [facility] - d/w RN - communicated with primary team at [facility] about covid-19 isolation 2. cardiac, NSVT, RBBB - for heart catheter and possible pacemaker/ICD 3. VRE colonization. 4. CHF. 5. Diabetes. 6. Hypertension. 7. Blood sugar and blood pressure treatment per primary care team for diabetes and hypertension. 8. PVCs. 9. Hypokalemia. 10. Venous stasis ulcers. Continue wound care per protocol. 11. No known drug allergies. 12. Social history is negative. 13. Family history is noncontributory. 14. MAR was noted. 15. Case discussed with RN. 16. Case discussed with Dr. Killian. 17. Orders were noted and entered. 18. Continue treatment per primary consultants. Subjective Constitutional: Denies: fever HEENT: Denies: congestion Respiratory: Denies: shortness of breath Cardiovascular: Denies: chest pain Gastrointestinal/Abdominal: Denies: nausea, vomiting, diarrhea Genitourinary: Reports: other - + pena Neurologic: Denies: headache Psychiatric: Denies: depression Skin: Denies: rash Hematologic: Denies: bleeding Musculoskeletal: Denies: pain Allergies: Coded Allergies: No Known Allergies (Unverified , 01/14/20) Objective Vital Signs Last 24 Hour Vital Signs Date Time Temp Pulse Resp B/P (MAP) Pulse Ox O2 Delivery O2 Flow Rate FiO2 01/19/20 16:00 98.2 110 20 116/55 (75) 97 01/19/20 12:00 84 01/19/20 12:00 98.2 78 19 123/50 (74) 94 01/19/20 09:00 Nasal Cannula 1.0 01/19/20 09:00 108/54 01/19/20 09:00 78 108/54 01/19/20 08:00 98.2 78 19 108/54 (72) 94 01/19/20 08:00 80 01/19/20 04:00 68 01/19/20 00:00 97.9 72 17 127/63 (84) 95 01/19/20 00:00 69 01/18/20 21:41 77 100/59 01/18/20 21:00 Nasal Cannula 1.0 01/18/20 20:00 96.7 77 18 100/59 (73) 96 01/18/20 20:00 81 Height (Feet): 5 Height (Inches): 5.00 Weight (Pounds): 141 General Appearance: no acute distress HEENT: normocephalic, atraumatic, anicteric, mucous membranes moist Respiratory/Chest: lungs clear, normal breath sounds, no respiratory distress, no accessory muscle use Cardiovascular: normal rate, regular rhythm, no gallop/murmur, no JVD Abdomen: normal bowel sounds, soft, non tender, no organomegaly, non distended Genitourinary: other - + pena Extremities: no cyanosis Skin: no rash, ulcers - wounds reviewed 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 Retrocardiac consolidation persists. There is likely decreased pleural fluid on the left. Generalized diffuse interstitial prominence is unchanged. The heart size is upper limits normal. Impression: Decreased right basilar atelectasis and pleural fluid Unchanged left basilar atelectasis and possible consolidation Suspect decreased left pleural fluid Background interstitial prominence, likely chronic, stable Microbiology Date/Time Source Procedure Growth Status 01/14/20 17:38 Blood Blood Culture - Preliminary NO GROWTH AFTER 4 DAYS Resulted 01/14/20 11:25 Nasal Nares MRSA Culture - Final NO METHICILLIN RESISTANT STAPH AUREUS... Complete 01/14/20 16:20 Urine,Clean Catch Urine Culture - Final Enterococcus Faecalis Complete 01/14/20 11:25 Rectum - Final NO CARBAPENEM-RESISTANT ENTEROBACTERI... Complete Laboratory Tests Test 01/19/20 05:43 White Blood Count 7.4 K/UL (4.8-10.8) Red Blood Count 3.53 M/UL (4.20-5.40) L Hemoglobin 9.1 G/DL (12.0-16.0) L Hematocrit 29.6 % (37.0-47.0) L Mean Corpuscular Volume 84 FL (80-99) Mean Corpuscular Hemoglobin 25.8 PG (27.0-31.0) L Mean Corpuscular Hemoglobin Concent 30.8 G/DL (32.0-36.0) L Red Cell Distribution Width 19.5 % (11.6-14.8) H Platelet Count 384 K/UL (150-450) Mean Platelet Volume 5.2 FL (6.5-10.1) L Neutrophils (%) (Auto) 42.5 % (45.0-75.0) L Lymphocytes (%) (Auto) 27.5 % (20.0-45.0) Monocytes (%) (Auto) 11.2 % (1.0-10.0) H Eosinophils (%) (Auto) 17.2 % (0.0-3.0) H Basophils (%) (Auto) 1.7 % (0.0-2.0) Sodium Level 142 MMOL/L (136-145) Potassium Level 3.7 MMOL/L (3.5-5.1) Chloride Level 104 MMOL/L (98-107) Carbon Dioxide Level 34 MMOL/L (21-32) H Anion Gap 4 mmol/L (5-15) L Blood Urea Nitrogen 6 mg/dL (7-18) L Creatinine 0.6 MG/DL (0.55-1.30) Estimat Glomerular Filtration Rate > 60 mL/min (>60) Glucose Level 84 MG/DL (74-106) Calcium Level 9.0 MG/DL (8.5-10.1) MAR noted: meds reviewed abx - doxycycline, macrobid, ceftriaxone Leroy Maurice MD Jan 19, 2020 20:11
== END 2020-01-19 18:16 | disposition short-term general hospital (02) | DRG 193 ==
LOC: EDBD 09:21 → EMR 09:45 → EDBEDREQ 21:20 → 2E 01-15 16:54
DX: J18.9 Pneumonia, unspecified organism (principal); J96.01 Acute respiratory failure with hypoxia; I50.23 Acute on chronic systolic (congestive) heart failure; L97.909 Non-pressure chronic ulcer of unspecified part of unspecified lower leg with unspecified severity; N39.0 Urinary tract infection, site not specified; I11.0 Hypertensive heart disease with heart failure; Z20.828 Contact with and (suspected) exposure to other viral communicable diseases; J43.9 Emphysema, unspecified
CPT/HCPCS: 36415; 71045; 80048; 80053; 81003; 83690; 83735; 83880; 84484; 85025; 85610; 85730; 87040; 87081; 87086; 87181; 87635; 93005; 93306; 96365; 96367; 96375; 99285; J2405; J8499